=== PATIENT | female | born 1970 | race Caucasian/White ===

== ENCOUNTER 2017-10-23 17:21 | Emergency (ER) | payer OTHER ==
[~2017-10-23] VITALS: Ht 177.8 cm; Wt 92.4 kg
[2017-10-23 17:24] VITALS: TEMP 37.7; Ht 177.8 cm; Wt 92.4 kg
[2017-10-23] MEDS ORDERED: CYM/30 PO (17:36)
[2017-10-23] MEDS ORDERED: COEN100C11 PO (17:36)
[2017-10-23] MEDS ORDERED: PREG1CAP28 PO (17:36)
[2017-10-23] MEDS ORDERED: GLC/500 PO (17:36)
[2017-10-23] MEDS ORDERED: CHOL1000 PO (17:36)
[2017-10-23] MEDS ORDERED: LISI-788 PO (17:36)
[2017-10-23] MEDS ORDERED: FENOFIBRATE PO (17:36)
[2017-10-23] MEDS ORDERED: PREG1CAP70 PO (17:36)
[2017-10-23] MEDS ORDERED: CLOP1TAB15 PO (17:36)
[2017-10-23] MEDS ORDERED: PRAV40TA PO (17:36)
[2017-10-23] MEDS ORDERED: PANT40TA PO (17:36)
[2017-10-23] MEDS ORDERED: ASPI81TA28 PO (17:36)
[2017-10-23] MEDS ORDERED: METO25TA3 PO (17:36)
[2017-10-23] MEDS ORDERED: ANTICRE6 PO (17:39)
[2017-10-23] MEDS ORDERED: OXYC-609 PO (17:39)
[2017-10-23] MEDS ORDERED: ACETAMINOPHEN 500 MG TAB PO STA (17:58)
[2017-10-23] MEDS ORDERED: OXYCODONE HCL IR 5 MG TAB (IMMEDIATE RELEASE) PO STA (17:58)
--- NOTE | 2017-10-23 18:15 | EMERGENCY ROOM VISIT NOTE ---
History Report prepared by Karrie: Ester Hancock Under the Supervision of: Dr. Momo Ayala M.D. First contact with patient: 17:32 Chief Complaint: HAND PAIN/INJURY Stated Complaint: EXCESSIVE PAIN FROM SURGERY History of Present Illness The patient is a 47 year old female who presents to the Emergency Room with complaints of constant left hand pain beginning yesterday. The patient had carpal tunnel surgery on left hand yesterday. Her pain worsens with moving her fingers. She denies any fever, chills, nausea, or vomiting. She has follow up with her surgeon on Wednesday, six days from today. The patient is taking 5 mg of oxycodone every four hours which has not been helping her pain. She last took an oxycodone at 2 pm, about three and a half hours ago. She denies any other pain medication use. The patient called the HELP desk which referred her to come to the ED. She states she has been keeping her hand elevated at home. Source of History: patient Onset: yesterday Position: hand (left) Quality: other (pain) Timing: constant Associated Symptoms: No fevers, No chills, No nausea, No vomiting Review of Systems See HPI for pertinent positives and negatives. A total of ten systems were reviewed and were otherwise negative. Past Medical & Surgical Medical Problems: (1) Carpal tunnel syndrome on left Family History Patient reports no known family medical history. Social History Smoking Status: Current Every Day Smoker Housing Status: lives with family Current/Historical Medications Scheduled Aspirin (Aspirin Ec), 81 MG PO DAILY Cholecalciferol (Vitamin D3), 5,000 INTER.UNIT PO DAILY Clopidogrel (Plavix), 75 MG PO DAILY Coenzyme Q10 (Ubidecarenone) (Coq-10), 100 MG PO BID Duloxetine HCl (Cymbalta), 60 MG PO DAILY Lisinopril/Hctz (Zestoretic 20MG/25MG), 1 TAB PO BID Metformin Hcl (Glucophage), 500 MG PO BID Metoprolol Succ (Toprol Xl) (Toprol-Xl), 25 MG PO BID Pantoprazole (Protonix), 40 MG PO DAILY Pravastatin Sodium (Pravachol), 40 MG PO Q2D Pregabalin (Lyrica), 75 MG PO HS Pregabalin (Lyrica), 150 MG PO BID [Antibiotic], 1 CAP PO TID [Fenofibrate], 1 TAB PO DAILY Scheduled PRN Oxycodone HCl (Oxycodone HCl), 5 MG PO Q4 PRN for Pain Allergies Coded Allergies: Dicyclomine (Unverified Allergy, Unknown, GI UPSET, 10/23/17) Glipizide (Unverified Allergy, Unknown, GI UPSET, 10/23/17) Penicillins (Unverified Allergy, Unknown, RASH, 10/23/17) Prednisone (Unverified Allergy, Unknown, GI UPSET, 10/23/17) Statins (Unverified Allergy, Unknown, JOINTS ACHE, 10/23/17) Sulfa Antibiotics (Unverified Allergy, Unknown, UNKNOWN, 10/23/17) Trazodone (Unverified Allergy, Unknown, EXCESSIVE SLEEPING, 10/23/17) Physical Exam Vital Signs Date Time Temp Pulse Resp B/P (MAP) Pulse Ox O2 Delivery O2 Flow Rate FiO2 10/23/17 19:05 72 18 115/76 94 Room Air 10/23/17 17:24 37.7 86 18 130/88 94 Room Air Physical Exam GENERAL: Awake, alert, uncomfortable-appearing, in no distress HENT: Normocephalic, atraumatic. Oropharynx unremarkable. EYES: Normal conjunctiva. Sclera non-icteric. NECK: Supple. No nuchal rigidity. FROM. No JVD. RESPIRATORY: Clear to auscultation. CARDIAC: Regular rate, normal rhythm. Extremities warm and well perfused. Pulses equal. ABDOMEN: Soft, non-distended. No tenderness to palpation. No rebound or guarding. No masses. RECTAL: Deferred. MUSCULOSKELETAL: Chest examination reveals no tenderness. The back is symmetrical on inspection without obvious abnormality. There is no CVA tenderness to palpation. Mild edema left hand and distal forearm consistent with post-op, incision site clean, dry, and intact with no erythema, warmth or discharge, compartments are soft, minimal discomfort with passive stretch, distal PMS intact with brisk cap refill. LOWER EXTREMITIES: Calves are equal size bilaterally and non-tender. No edema. No discoloration. NEURO: Normal sensorium. No sensory or motor deficits noted. SKIN: No rash or jaundice noted. Medical Decision & Procedures Medications Administered Medications (Trade) Dose Ordered Sig/Tamar Route Start Time Stop Time Status Last Admin Dose Admin Oxycodone HCl (Roxicodone Immediate Rel Tab) 10 mg NOW STAT PO 10/23/17 17:58 10/23/17 18:00 DC 10/23/17 18:07 10 MG Acetaminophen (Tylenol Tab) 1,000 mg NOW STAT PO 10/23/17 17:58 10/23/17 18:00 DC 10/23/17 18:06 1,000 MG ED Course 174: The patient was evaluated in room B9. A complete history and physical exam was performed. 1931: I reevaluated the patient. Discussed results and discharge instructions: She verbalized understanding and agreement. The patient is ready for discharge. Medical Decision I reviewed the patient's past medical history, medications, and the nursing notes as described above. Differential diagnoses: post-op pain, post-op swelling, infection, cellulitis, compartment syndrome. The patient is a 39-year-old woman who presents emergency Department with left hand pain after having a carpal tunnel surgery yesterday per history of present illness. On arrival the patient is uncomfortable but in no acute distress. Dressing was taken down and incision site is clean dry and intact without any erythema or warmth or discharge. She has mild pain with range of motion able to fully extend her fingers. Compartments soft. Otherwise, distal PMS is intact with brisk cap refill. Patient was instructed on how to optimize elevation to decrease swelling. Also instructed that she may take an early dose of oxycodone if necessary in the first couple of days. We attempted to contact her hand surgeon occupational health nurse however were unsuccessful. Patient will call her surgeon first thing on Wednesday for reevaluation. Findings and plan for follow-up reviewed with patient. Patient agreeable and d/c'd per discharge instructions. Medication Reconcilliation Current Medication List: was personally reviewed by me Blood Pressure Screening Patient's blood pressure: Normal blood pressure Impression Primary Impression: Post-operative pain Scribe Attestation The scribe's documentation has been prepared under my direction and personally reviewed by me in its entirety. I confirm that the note above accurately reflects all work, treatment, procedures, and medical decision making performed by me. Departure Information Dispostion Home / Self-Care Referrals No Doctor, Assigned (PCP) Forms HOME CARE DOCUMENTATION FORM, IMPORTANT VISIT INFORMATION Patient Instructions Carpal Tunnel Release Surg, ED Post Op Pain, [facility] Additional Instructions Please follow up with your surgeon on Wednesday for re-evaluation. Your pain is likely related to your post operative swelling. Otherwise, your exam did not show signs of an emergent condition at this time. You taking her oxycodone however you may take 1-2 tablets every 4 hours as needed for pain. You should also take acetaminophen in addition to this for additional pain relief. You should also elevate your arm as instructed. Continue your current antibiotics. Return to the emergency department for worsening symptoms as described in the accompanying instructions.
[2017-10-23 19:05] VITALS: BP 115/76; PULSE 72; O2SAT 94
== END 2017-10-23 19:20 | disposition home or self-care (01) ==
LOC: C.EDB 17:22
DX: G89.18 Other acute postprocedural pain (principal); F17.200 Nicotine dependence, unspecified, uncomplicated; Z79.82 Long term (current) use of aspirin; Z79.84 Long term (current) use of oral hypoglycemic drugs; Z79.899 Other long term (current) drug therapy; Z80.0 Family history of malignant neoplasm of digestive organs; Z88.2 Allergy status to sulfonamides; Z88.8 Allergy status to other drugs, medicaments and biological substances

== ENCOUNTER 2021-02-03 23:08 | Inpatient (IN) ==
[2021-02-03] MEDS ORDERED: KETOROLAC TROMETHAMINE 15 MG/ML VIAL IV STA (23:41)
[2021-02-03] MEDS ORDERED: SODIUM CHLORIDE 0.9% 1000ML 1,000 ML IV ONE (23:41)
[2021-02-03] MEDS ORDERED: PROMETHAZINE 12.5 MG/50.5 ML BAG IV STA (23:42)
[2021-02-03] MEDS ORDERED: diphenhydrAMINE 50 MG/ML VIAL IV STA (23:42)
[2021-02-04 00:23] LABS: Basophils # (auto) 0.06 K/uL (0-0.2); Basophils % (auto) 0.6 %; Eosinophils # (auto) 0.14 K/uL (0-0.5); Eosinophils % (auto) 1.5 %; Hematocrit (blood only) 37.6 % (37-47); Hemoglobin 12.7 g/dL (12.0-16.0); Immature Granulocytes # (auto) 0.02 K/uL (0.00-0.02); Immature Granulocytes % (auto) 0.2 %; Lymphocytes # (auto) 2.61 K/uL (1.2-3.4); Mean Corpuscular Hemoglobin 29.9 pg (25-34); Mean Corpuscular Hgb Conc 33.8 g/dL (32-36); Mean Corpuscular Volume 88.5 fL (80-100); Mean Platelet Volume 9.4 fL (7.4-10.4); Monocytes # (auto) 0.72 K/uL (0.11-0.59); Monocytes % (auto) 7.7 %; Neutrophils # (auto) 5.77 K/uL (1.4-6.5); Platelet Count 316 K/uL (130-400); RDW Coefficient of Variation 13.2 % (11.5-14.5); RDW Standard Deviation 42.9 fL (36.4-46.3); Red Blood Count 4.25 M/uL (4.2-5.4); White Blood Count 9.32 K/uL (4.8-10.8)
[2021-02-04 00:31] LABS: Appearance Urine Clear (Clear); Bacteria Urine Automated Negative (Negative); Bilirubin Urine Negative (Negative); Blood Urine Negative (Negative); Cast Urine Automated 0 /lpf (0-5); Color Urine Yellow; Epithelial Cell Urine Auto 0-5 /lpf (0-5); Glucose Urine UA Negative (Negative); Ketones Urine Negative (Negative); Leukocyte Esterase Urine Trace (Negative); Nitrite Urine Negative (Negative); Protein Urine Negative (Negative); RBC Urine Automated 0-4 /hpf (0-4); Specific Gravity Urine 1.009 (1.000-1.030); Urobilinogen Urine Negative (Negative); pH Urine 7.5 (4.5-7.5)
[2021-02-04 00:49] LABS: Alanine Aminotransferase 49 U/L (12-78); Albumin Globulin Ratio 1.1 (0.9-2); Albumin Level 4.1 gm/dl (3.4-5.0); Alkaline Phosphatase 57 U/L (45-117); BUN Creatinine Ratio 15.1 (10-20); Bilirubin,Total 0.4 mg/dl (0.2-1); Blood Urea Nitrogen 14 mg/dl (7-18); Calcium 10.3 mg/dl (8.5-10.1); Carbon Dioxide 26 mmol/L (21-32); Chloride 106 mmol/L (98-107); Creatinine Clr Calc Pharmacy 80.1 ml/min; Est GFR (African American) 82.5; Est GFR (Non-African American) 71.2; Globulin 3.6 gm/dl (2.5-4.0); Glucose 168 mg/dl (70-99); Sodium 138 mmol/L (136-145); Total Protein 7.7 gm/dl (6.4-8.2); Troponin I < 0.015 ng/ml (0-0.045)
[2021-02-04] MEDS ORDERED: LORazepam 1 MG/2 ML VIAL IV STA (01:09)
[2021-02-04] MEDS ORDERED: ACETAMINOPHEN 1,000 MG/100 ML VIAL IV STA (01:09)
[2021-02-04] MEDS ORDERED: MAGNESIUM SULFATE / D5W 1 GM/100 ML BAG IV STA (01:11)
[2021-02-04] MEDS ORDERED: LABETALOL HCL IV 5 MG/ML 20ML IV STA (02:11)
[2021-02-04 04:52] LABS: Influenza A virus by PCR Negative (Neg); Influenza B virus by PCR Negative (Neg); RSV by PCR Negative (Neg); SARS CoV2 RNA(COVID-19) InHosp NEGATIVE (Negative)
--- NOTE | 2021-02-04 05:05 | History and Physical Report ---
DATE OF ADMISSION: 02/04/2021 CHIEF COMPLAINT: Severe headache and elevated blood pressure. HISTORY OF PRESENT ILLNESS: This is a 50-year-old female with past medical history significant for type 2 diabetes, diabetic retinopathy, hyperlipidemia, CAD, hypertension, GERD, vitamin D deficiency, vitamin B12 deficiency, restless legs syndrome, recurrent epigastric abdominal pain, adjustment depression, history of tobacco abuse, who presents with severe headaches. The patient states since September, she is having on and off headaches. Since the last several days, the pain has become constant and severe. She is also following with PCP,headaches thought to be due to elevated blood pressure and her Lopressor dose was increased to 75 b.i.d., but headaches is not getting better, and came to the ER. In the ER, blood pressure was high when she came in, blood pressure was 226/124 and the patient was given labetalol, Ativan, Benadryl, Toradol, promethazine. Still her blood pressure is running high and still complains of headache and somewhat drowsy from the Ativan. Denies any other complaints. One time she had vision problem , but recently she saw ophthalmology and has new eye glasses. Denies any earache, no runny nose, no sore throat, no loss of sense of smell or taste. No cough, no difficulty swallowing. Appetite is okay. No chest pain, no shortness of breath. Nausea, but no vomiting. No abdominal pain. Normal bowel and bladder movements. Ambulating okay. Lives alone. No swelling in the legs. ALLERGIES: DICYCLOMINE, GLIPIZIDE, PENICILLIN, PREDNISONE, STATINS, SULFA, TRAZODONE. PAST MEDICAL HISTORY: As mentioned above. PAST SURGICAL HISTORY: Left carpal tunnel surgery, cardiac catheterization, EGD, laparoscopic biopsy, ligation of oviduct, cholecystectomy, tonsillectomy, adenoidectomy, vaginal hysterectomy. MEDICATIONS: Currently, the patient is on aspirin 81 mg p.o. daily, vitamin D 125 mcg p.o. daily, Plavix 75 mg p.o. daily, vitamin B12 1000 mcg p.o. daily, duloxetine 60 mg p.o. daily, lisinopril 40 mg p.o. daily, metformin 1000 mg p.o. b.i.d., metoprolol tartrate 75 mg p.o. b.i.d., omega fish oil 1 capsule p.o. b.i.d., Zofran 4 mg p.o. q. 6 hours p.r.n., Protonix 40 mg p.o. daily, pravastatin 40 mg p.o. p.m., pregabalin 225 mg p.o. b.i.d., prochlorperazine 2.5 mg p.o. q. 6 hours p.r.n., semaglutide 0.5 mg subcutaneous weekly. FAMILY HISTORY: Significant for father had COPD, heart attack, lung cancer; mother has hypertension, hyperlipidemia, diabetes; paternal aunt has breast cancer; maternal grandmother has diabetes. SOCIAL HISTORY: Currently lives alone. Smoked for 20 years. Now she smokes only occasionally. No alcohol use, no drug use. REVIEW OF SYSTEMS: As per HPI. Rest of the review of systems negative. PHYSICAL EXAMINATION: GENERAL: The patient is obese, not in acute distress. VITAL SIGNS: Temperature 36.4, pulse 75, respiratory rate 22, blood pressure currently 189/110, oxygen 93% on room air. HEENT: Pupils equal, round, reactive to light. Oral mucosa dry. NECK: No JVD, no neck masses. CARDIOVASCULAR: S1, S2 heard, regular rate and rhythm, no murmur, no gallop. RESPIRATORY SYSTEM: Normal AP diameter. No accessory muscle use. No wheezing, no crackles. ABDOMEN: Soft, bowel sounds present, nontender. No distention. CENTRAL NERVOUS SYSTEM: Cranial nerves II-XII grossly intact. Nonfocal. EXTREMITIES: No edema, no erythema. LABORATORY DATA: WBC 9.3, hemoglobin 12.7, hematocrit 37.6, platelets 316. Sodium 138, chloride 106, bicarbonate 26, BUN 14, creatinine 0.9, serum glucose 168, calcium 10.3, total bilirubin 0.4, ALT 49, alkaline phosphatase 57. Troponin I less than 0.015. Urinalysis, trace leukocyte esterase, otherwise negative. SARS-CoV-2 pending. IMAGING DATA: CT of the head, preliminary report, periventricular small vessel ischemic changes, mild generalized brain atrophy, otherwise no acute findings. ASSESSMENT AND PLAN: This 50-year-old female presents with severe headaches and hypertensive urgency. 1. Severe headaches: Going on since September, on and off. Thought to be from elevated blood pressure. The Lopressor dose was increased, but still having severe headaches. CT of the head is unremarkable. We will get a brain MRI scan. Control blood pressure. Also consult neurology as this is going for some time. Pain control with Dilaudid p.r.n., Tylenol p.r.n. Monitor in the hospital. 2. Hypertensive urgency: Recently Lopressor dose was increased to 75 b.i.d., but still elevated. Will continue with the home lisinopril and Lopressor. Placed her on IV labetalol p.r.n., monitor in the tele floor. Consult cardiology for further recommendations and will follow the echocardiogram. 3. History of coronary artery disease: On aspirin, Plavix, statin, and beta meño, currently asymptomatic. 4. History of diabetes: Hold her metformin and semaglutide. Placed on Lantus and sliding scale. Follow the blood sugars, diabetic diet. Follow hemoglobin A1c levels. 5. History of depression: Continue duloxetine. 6. Gastroesophageal reflux disease: Continue Protonix. 7. Hyperlipidemia: Continue statin. 8. Vitamin B12 and D deficiencies: Continue home supplements. 9. Deep venous thrombosis prophylaxis: Sequential compression devices for now. DISPOSITION: Closely monitor in the tele floor. Level 1 full code. Expect to discharge home and follow with family doctor. VERENICE
[2021-02-04] MEDS ORDERED: SODIUM CHLORIDE 0.9% 1000ML 1,000 ML IV SCH (06:01)
[2021-02-04] MEDS ORDERED: PROCHLORPERAZINE MALEATE 5 MG TAB PO PRN (06:01)
[2021-02-04] MEDS ORDERED: POLYETHYLENE (MIRALAX) 17 GM PACK PO PRN (06:01)
[2021-02-04] MEDS ORDERED: NITROGLYCERIN SL 0.4 MG/TAB TAB SL PRN (06:01)
[2021-02-04] MEDS ORDERED: ACETAMINOPHEN 325 MG TAB PO PRN (06:01)
[2021-02-04] MEDS ORDERED: ONDANSETRON INJ 2 MG/ML 2 ML VIAL IV PRN (06:01)
[2021-02-04] MEDS ORDERED: CARBOHYDRATES FOR HYPOGLYCEMIA PO PRN (06:15)
[2021-02-04] MEDS ORDERED: GLUCAGON FOR INJ 1 MG VIAL IM PRN (06:15)
[2021-02-04] MEDS ORDERED: DEXTROSE 50% 50 ML SYRINGE IV PRN (06:15)
[2021-02-04] MEDS ORDERED: GLUCOSE 40% GEL 15 GM TUBE PO PRN (06:15)
[2021-02-04] MEDS ORDERED: GLUCOSE 10 TABS/TUBE PO PRN (06:15)
[2021-02-04] MEDS: LABETALOL HCL IV 5 MG/ML 20ML IV PRN ×2 (06:19→23:21)
[2021-02-04] MEDS ORDERED: hydrALAZINE HCL 20 MG/ML VIAL IV STA (06:44)
--- NOTE | 2021-02-04 07:27 | CT Scan Report ---
CT SCAN OF THE BRAIN WITHOUT IV CONTRAST CLINICAL HISTORY: Headache. Hypertension. COMPARISON STUDY: No priors. TECHNIQUE: Unenhanced axial CT scan of the brain is performed from the vertex to the skull base. A d ose lowering technique was utilized adhering to the principles of ALARA. CT DOSE: 614.27 mGy.cm FINDINGS: Brain parenchyma: The brain parenchyma is normal in appearance. There is no hemorrhage, mass effect, or evidence of acute territorial ischemia by CT criteria. Nicole-white matter differentiation is preser antonio. No extra-axial fluid collection is seen. Ventricles, sulci, cisterns: Normal in configuration. Intracranial vasculature: There is atherosclerotic calcification of the vertebral arteries. Calvarium: Unremarkable. Sinuses and mastoids: The visualized paranasal sinuses are clear. The mastoid air cells are well pneu matized. Orbits: The bony orbits are grossly intact. IMPRESSION: There is no hemorrhage, mass effect, or evidence of acute territorial ischemia by CT critimmy whelan. ACT 112: Negative or not required by law. Electronically signed by: Mika Hayes M.D. 02/04/2021 7:25 AM
[2021-02-04] MEDS: INSULIN ASPART 100 UNITS/ML 3 ML PEN SC SCH ×4 (07:44→22:33)
--- NOTE | 2021-02-04 07:48 | Emergency Department Note ---
History of Present Illness General Chief complaint: Headache Stated complaint: BAD HEADACHE Time Seen by Provider: 02/03/21 23:20 Source: patient Mode of arrival: ambulatory Limitations: no limitations History of Present Illness Maximum Pain Intensity: 10 This is a 50-year-old female who presents to the emergency department for evaluation of headache and high blood pressure. Patient states that she has had a headache on and off since September 2020. She states that she has headaches almost daily. She reports that it has been worse over the past 4 days. Nothing has made it better, including Tylenol, cold washcloth and ice. She has had dry heaves. She took her nausea medication without improvement. Patient states she has had other issues such as abdominal pain and diarrhea over the past several months. She has also been having issues with her blood pressure. She states that her blood pressure has been poorly controlled on metoprolol and lisinopril. Her PCP believes that her headaches are due to her blood pressure. She states that no one has done any imaging of her head. She rates her pain a 10/10. She denies any numbness/weakness, vision problems or slurred speech. Home Medications Medication Instructions Recorded Confirmed Type aspirin [Aspirin Low Dose] 81 mg PO DAILY 02/04/21 02/04/21 History cholecalciferol (vitamin D3) 125 mcg PO DAILY 02/04/21 02/04/21 History clopidogrel 75 mg PO DAILY 02/04/21 02/04/21 History cyanocobalamin (vitamin B-12) 1,000 mcg PO DAILY 02/04/21 02/04/21 History [Vitamin B-12] duloxetine 60 mg PO DAILY 02/04/21 02/04/21 History lisinopril 40 mg PO DAILY 02/04/21 02/04/21 History metformin 1,000 mg PO BID 02/04/21 02/04/21 History metoprolol tartrate 75 mg PO BID 02/04/21 02/04/21 History omega [id number] oil [Fish Oil] 1 cap PO BID 02/04/21 02/04/21 History ondansetron HCl 4 mg PO Q6 PRN 02/04/21 02/04/21 History pantoprazole 40 mg PO DAILY 02/04/21 02/04/21 History pravastatin 40 mg PO QPM 02/04/21 02/04/21 History pregabalin 225 mg PO BID 02/04/21 02/04/21 History prochlorperazine maleate 2.5 mg PO Q6 PRN 02/04/21 02/04/21 History semaglutide [Ozempic] 0.5 mg SUBCUT WK 02/04/21 02/04/21 History Allergies Allergy/AdvReac Type Severity Reaction Status Date / Time dicyclomine Allergy Unknown GI UPSET Unverified 02/04/21 00:14 glipizide Allergy Unknown GI UPSET Unverified 02/04/21 00:14 Penicillins Allergy Unknown RASH Unverified 02/04/21 00:14 prednisone Allergy Unknown GI UPSET Unverified 02/04/21 00:14 [id number] Reductase Allergy Unknown JOINTS ACHE Unverified 02/04/21 00:14 Inhibitor Sulfa (Sulfonamide Allergy Unknown UNKNOWN Unverified 02/04/21 00:14 Antibiotics) trazodone Allergy Unknown EXCESSIVE Unverified 02/04/21 00:14 SLEEPING Past Med/Surg History Social History Smoking Status: Current some day smoker Second Hand Exposure: Yes; Do You Dip or Chew Tobacco: No; Tobacco Cessation Education Requested by Patient: No Hx Alcohol Use: No Hx Substance Use: No Preferred Language: Palauan Communication Ability: Effective Assembly Technician Required: No Beliefs That Will Affect Care: None Current Living Situation: Alone Other Information That Helps Us Care for You: No Feels Safe at Home: Yes Safety Concerns: Feels Safe At This Time Assistive Devices: None Review of Systems A total of 10 systems reviewed and were otherwise negative Physical Exam Vital Signs Vital Signs - 24 hr 02/03/21 23:13 02/04/21 00:17 02/04/21 01:00 Temperature 36.4 C L Temperature Source Temporal Artery Scan Pulse Rate 72 76 77 Pulse Rate from SpO2 Sensor 77 77 Pulse Rhythm Regular Pulse Strength Normal Respiratory Rate 20 22 24 Respiratory Effort / Characteristics Non-Labored Spontaneous Respiratory Depth Normal Respiratory Pattern Regular Blood Pressure 226/124 H 214/117 H 226/114 H Blood Pressure Mean 158 149 151 Blood Pressure Position Sitting Pulse Oximetry 97 96 93 Oxygen Delivery Method Room Air Room Air Sepsis Recent Fever Within 48 Hours No Sepsis New/Unexplained Change in Mental Status N/A Sepsis Action Taken by Nursing No Action Required 02/04/21 01:30 02/04/21 02:00 02/04/21 02:27 Temperature Temperature Source Pulse Rate 78 75 Pulse Rate from SpO2 Sensor 73 73 Pulse Rhythm Pulse Strength Respiratory Rate 20 18 Respiratory Effort / Characteristics Respiratory Depth Respiratory Pattern Blood Pressure 226/113 H 223/123 H 198/102 H Blood Pressure Mean 150 156 134 Blood Pressure Position Pulse Oximetry 94 94 Oxygen Delivery Method Sepsis Recent Fever Within 48 Hours Sepsis New/Unexplained Change in Mental Status Sepsis Action Taken by Nursing 02/04/21 02:30 02/04/21 02:44 02/04/21 03:00 Temperature Temperature Source Pulse Rate 88 75 75 Pulse Rate from SpO2 Sensor 89 75 Pulse Rhythm Pulse Strength Respiratory Rate 19 22 22 Respiratory Effort / Characteristics Respiratory Depth Respiratory Pattern Blood Pressure 190/107 H 189/110 H 161/102 H Blood Pressure Mean 134 136 121 Blood Pressure Position Pulse Oximetry 93 93 95 Oxygen Delivery Method Sepsis Recent Fever Within 48 Hours Sepsis New/Unexplained Change in Mental Status Sepsis Action Taken by Nursing 02/04/21 03:30 02/04/21 04:00 Temperature Temperature Source Pulse Rate 74 73 Pulse Rate from SpO2 Sensor Pulse Rhythm Pulse Strength Respiratory Rate 21 21 Respiratory Effort / Characteristics Respiratory Depth Respiratory Pattern Blood Pressure 173/118 H 178/114 H Blood Pressure Mean 136 135 Blood Pressure Position Pulse Oximetry 96 96 Oxygen Delivery Method Sepsis Recent Fever Within 48 Hours Sepsis New/Unexplained Change in Mental Status Sepsis Action Taken by Nursing VITALS: Vitals are noted on the nurse's note and reviewed by myself. Vital signs stable. GENERAL: This is a 50-year-old female, in no acute distress, well-developed well-nourished. SKIN: The skin was without rashes. HEAD: Normocephalic atraumatic. EARS: External auditory canals clear, tympanic membranes pearly nicole without erythema or effusion bilaterally. EYES: Pupils equal round and reactive to light and accommodation. Extraocular movements intact. MOUTH: Mucous membranes moist. Tonsils are not enlarged. Pharynx without erythema or exudate. NECK: Supple without nuchal rigidity. No lymphadenopathy. No meningismus. HEART: Regular rate and rhythm without murmurs gallops or rubs. LUNGS: Clear to auscultation bilaterally without wheezes, rales or rhonchi. ABDOMEN: Positive bowel sounds x 4. Soft, nontender to palpation. MUSCULOSKELETAL: Full range of motion throughout. Strength 5/5 throughout. NEURO: Patient was alert and oriented to person place and time. No focal neurological deficits. Course Consultations Consultation #1: Dr. Arenas [facility] hospitalist Administered Medications Amlodipine Besylate (Amlodipine Besylate 5 Mg Tab) 5 mg PO BID CHARLES Stop: 03/06/21 20:59 Last Admin: 02/05/21 20:42 Dose: 5 mg Documented by: [id number] Admin: 02/05/21 08:14 Dose: 5 mg Documented by: [id number] Admin: 02/04/21 21:20 Dose: 5 mg Documented by: [id number] Aspirin (Aspirin 81 Mg Ectab) 81 mg PO DAILY CHARLES Stop: 03/06/21 08:59 Last Admin: 02/05/21 08:14 Dose: 81 mg Documented by: [id number] Admin: 02/04/21 08:15 Dose: 81 mg Documented by: [id number] Clonidine HCl (Clonidine Hcl 0.1 Mg Tab) 0.1 mg PO BID CHARLES Stop: 03/07/21 10:59 Last Admin: 02/05/21 20:42 Dose: 0.1 mg Documented by: [id number] Admin: 02/05/21 11:43 Dose: 0.1 mg Documented by: [id number] Clopidogrel Bisulfate (Clopidogrel Bisulfate 75 Mg Tab) 75 mg PO DAILY CHARLES Stop: 03/06/21 08:59 Last Admin: 02/05/21 08:15 Dose: 75 mg Documented by: [id number] Admin: 02/04/21 08:15 Dose: 75 mg Documented by: [id number] Cyanocobalamin (Cyanocobalamin 500 Mcg Tablet (Vitamin B-12)) 1,000 mcg PO DAILY CHARLES Stop: 03/06/21 08:59 Last Admin: 02/05/21 08:15 Dose: 1,000 mcg Documented by: [id number] Admin: 02/04/21 08:15 Dose: 1,000 mcg Documented by: [id number] Duloxetine HCl (Duloxetine Hcl 60 Mg Cap) 60 mg PO DAILY CHARLES Stop: 03/06/21 08:59 Last Admin: 02/05/21 08:14 Dose: 60 mg Documented by: [id number] Admin: 02/04/21 08:16 Dose: 60 mg Documented by: [id number] Ezetimibe (Ezetimibe 10 Mg Tablet) 10 mg PO QAM CHARLES Stop: 03/07/21 18:59 Last Admin: 02/05/21 20:09 Dose: 10 mg Documented by: [id number] Hydromorphone HCl (Hydromorphone Inj 0.5 Mg/0.5 Ml Syr) 0.5 mg IV Q3H PRN PRN Reason: Pain Stop: 02/18/21 06:00 Last Admin: 02/05/21 20:51 Dose: 0.5 mg Documented by: [id number] Admin: 02/05/21 17:03 Dose: 0.5 mg Documented by: [id number] Admin: 02/04/21 23:03 Dose: 0.5 mg Documented by: [id number] Insulin Aspart (Insulin Aspart 100 Units/Ml 3 Ml Pen) 0 units SC ACHS [facility] Stop: 03/06/21 07:29 Last Admin: 02/05/21 20:36 Dose: 1 units Documented by: [id number] Cosigned by: [id number] Admin: 02/05/21 17:08 Dose: 4 units Documented by: [id number] Cosigned by: [id number] Admin: 02/05/21 12:26 Dose: Not Given Documented by: [id number] Admin: 02/05/21 08:15 Dose: 3 units Documented by: [id number] Cosigned by: [id number] Admin: 02/04/21 22:33 Dose: 1 units Documented by: [id number] Cosigned by: [id number] Admin: 02/04/21 18:09 Dose: 3 units Documented by: [id number] Cosigned by: [id number] Admin: 02/04/21 11:52 Dose: 4 units Documented by: [id number] Cosigned by: [id number] Admin: 02/04/21 07:44 Dose: 4 units Documented by: [id number] Cosigned by: [id number] Insulin Glargine (Insulin Glargine Solostar 100 Units/Ml 3 Ml Pen) 6 units SC DAILY CHARLES Stop: 03/06/21 08:59 Last Admin: 02/05/21 08:15 Dose: 6 units Documented by: [id number] Cosigned by: [id number] Admin: 02/04/21 08:14 Dose: 6 units Documented by: [id number] Cosigned by: [id number] Ketorolac Tromethamine (Ketorolac 30 Mg/Ml Vial) 30 mg IV Q8H PRN PRN Reason: Headache Stop: 02/07/21 15:50 Last Admin: 02/05/21 15:53 Dose: 30 mg Documented by: [id number] Admin: 02/05/21 08:20 Dose: 30 mg Documented by: [id number] Admin: 02/04/21 16:19 Dose: 30 mg Documented by: [id number] Labetalol HCl (Labetalol Hcl Iv 5 Mg/Ml 20ml) 10 mg IV Q4H PRN PRN Reason: Hypertension Stop: 03/06/21 06:00 Last Admin: 02/04/21 23:21 Dose: 10 mg Documented by: [id number] Cosigned by: [id number] Admin: 02/04/21 06:19 Dose: 10 mg Documented by: [id number] Cosigned by: [id number] Lisinopril (Lisinopril 40 Mg Tab) 40 mg PO DAILY CHARLES Stop: 03/06/21 08:59 Last Admin: 02/05/21 08:15 Dose: 40 mg Documented by: [id number] Admin: 02/04/21 08:16 Dose: 40 mg Documented by: [id number] Lorazepam (Lorazepam 0.5 Mg Tab) 0.5 mg PO ONCE PRN PRN Reason: MRI Stop: 03/06/21 09:49 Last Admin: 02/04/21 21:23 Dose: 0.5 mg Documented by: [id number] Admin: 02/04/21 10:08 Dose: 0.5 mg Documented by: [id number] Metoprolol Tartrate (Metoprolol Tartrate 100 Mg Tab) 100 mg PO BID CHARLES Stop: 03/06/21 20:59 Last Admin: 02/05/21 20:42 Dose: 100 mg Documented by: [id number] Admin: 02/05/21 08:14 Dose: 100 mg Documented by: [id number] Admin: 02/04/21 21:20 Dose: 100 mg Documented by: [id number] Pantoprazole Sodium (Pantoprazole 40 Mg Tab) 40 mg PO DAILY CHARLES Stop: 03/06/21 08:59 Last Admin: 02/05/21 08:15 Dose: 40 mg Documented by: [id number] Admin: 02/04/21 08:15 Dose: 40 mg Documented by: [id number] Pravastatin Sodium (Pravastatin Sod 40 Mg Tab) 40 mg PO QPM CHARLES Stop: 03/06/21 20:59 Last Admin: 02/05/21 20:42 Dose: 40 mg Documented by: [id number] Admin: 02/04/21 21:19 Dose: 40 mg Documented by: [id number] Pregabalin (Pregabalin 75 Mg Cap) 225 mg PO BID CHARLES Stop: 03/06/21 08:59 Last Admin: 02/05/21 20:41 Dose: 225 mg Documented by: [id number] Admin: 02/05/21 08:20 Dose: 225 mg Documented by: [id number] Admin: 02/04/21 21:58 Dose: 225 mg Documented by: [id number] Admin: 02/04/21 08:19 Dose: 225 mg Documented by: [id number] Topiramate (Topiramate 25 Mg Tab) 25 mg PO BID CHARLES Stop: 03/07/21 20:59 Last Admin: 02/05/21 20:42 Dose: 25 mg Documented by: [id number] Vitamin D (Cholecalciferol 1,000 Units 25 Mcg Tab) 5,000 units PO DAILY CHARLES Stop: 03/06/21 08:59 Last Admin: 02/05/21 08:14 Dose: 5,000 units Documented by: [id number] Admin: 02/04/21 08:15 Dose: 5,000 units Documented by: [id number] Discontinued Medications Amlodipine Besylate (Amlodipine Besylate 5 Mg Tab) 5 mg PO NOW ONE Stop: 02/04/21 11:17 Last Admin: 02/04/21 11:32 Dose: 5 mg Documented by: [id number] Diphenhydramine HCl (Diphenhydramine 50 Mg/Ml Vial) 25 mg IV NOW STA Stop: 02/03/21 23:43 Last Admin: 02/04/21 00:15 Dose: 25 mg Documented by: [id number] Gadobutrol (Gadobutrol 65ml Vial) 8 ml IV ONCE ONE Stop: 02/04/21 13:20 Last Admin: 02/04/21 13:20 Dose: 8 ml Documented by: [id number] Hydralazine HCl (Hydralazine Hcl 20 Mg/Ml Vial) 10 mg IV NOW STA Stop: 02/04/21 06:45 Last Admin: 02/04/21 07:35 Dose: 10 mg Documented by: [id number] Sodium Chloride (Nss 1000ml) 1,000 mls @ 999 mls/hr IV .Q1H1M ONE Stop: 02/04/21 00:41 Last Infusion: 02/04/21 01:16 Dose: 0 mls/hr Documented by: [id number] Admin: 02/04/21 00:15 Dose: 999 mls/hr Documented by: [id number] Promethazine HCl (Phenergan) 12.5 mg in 50.5 mls @ 202 mls/hr IV NOW STA Stop: 02/03/21 23:56 Last Infusion: 02/04/21 00:34 Dose: 0 mls/hr Documented by: [id number] Admin: 02/04/21 00:15 Dose: 202 mls/hr Documented by: [id number] Lorazepam (Ativan) 1 mg in 2 mls @ 2 mls/min IV NOW STA Stop: 02/04/21 01:10 Last Admin: 02/04/21 01:19 Dose: 2 mls/min Documented by: [id number] Magnesium Sulfate/Dextrose (Magnesium Sulfate / D5w) 1 gm in 100 mls @ 100 mls/hr IV NOW STA Stop: 02/04/21 02:10 Last Infusion: 02/04/21 02:18 Dose: 0 mls/hr Documented by: [id number] Admin: 02/04/21 01:18 Dose: 100 mls/hr Documented by: [id number] Acetaminophen (Ofirmev) 1,000 mg in 100 mls @ 400 mls/hr IV NOW STA Stop: 02/04/21 01:23 Last Infusion: 02/04/21 01:34 Dose: 0 mls/hr Documented by: [id number] Admin: 02/04/21 01:19 Dose: 400 mls/hr Documented by: [id number] Sodium Chloride (Nss 1000ml) 1,000 mls @ 75 mls/hr IV .[id number] CHARLES Stop: 02/04/21 19:20 Last Infusion: 02/04/21 09:40 Dose: 0 mls/hr Documented by: [id number] Admin: 02/04/21 06:15 Dose: 75 mls/hr Documented by: [id number] Ketorolac Tromethamine (Ketorolac Tromethamine 15 Mg/Ml Vial) 15 mg IV NOW STA Stop: 02/03/21 23:42 Last Admin: 02/04/21 00:15 Dose: 15 mg Documented by: [id number] Labetalol HCl (Labetalol Hcl Iv 5 Mg/Ml 20ml) 10 mg IV NOW STA Stop: 02/04/21 02:12 Last Admin: 02/04/21 02:31 Dose: 10 mg Documented by: [id number] Cosigned by: [id number] Metoprolol Tartrate (Metoprolol Tartrate 25 Mg Tab) 75 mg PO BID CHARLES Stop: 03/06/21 08:59 Last Admin: 02/04/21 08:15 Dose: 75 mg Documented by: [id number] Medical Decision Making Differential Diagnosis The differential diagnosis includes acute intracranial bleed, meningitis, encephalitis, mass or mass effect, sinusitis, infection, tumor, headache, temporal arteritis and carbon monoxide exposure, and migraine. Home Medications Current Medication List: was personally reviewed by me Laboratory Data Attestation: I reviewed the patient's lab results. Result diagrams: 02/05/21 06:14 02/05/21 06:14 Lab Results 02/03/21 02/03/21 02/03/21 Range/Units 23:30 23:30 23:30 WBC Cancelled RBC Cancelled Hgb Cancelled Hct Cancelled MCV Cancelled MCH Cancelled MCHC Cancelled RDW Std Deviation Cancelled RDW Coeff of Nicolas Cancelled Plt Count Cancelled MPV Cancelled Immature Gran % (Auto) Cancelled Neut % (Auto) Cancelled Lymph % (Auto) Cancelled [place] % (Auto) Cancelled Eos % (Auto) Cancelled Baso % (Auto) Cancelled Neut # (Auto) Cancelled Lymph # (Auto) Cancelled [place] # (Auto) Cancelled Eos # (Auto) Cancelled Baso # (Auto) Cancelled Immature Gran # (Auto) Cancelled Absolute Nucleated RBC Cancelled Nucleated RBC % (auto) Cancelled Neutrophils % (Manual) Cancelled Band Neutrophils % Cancelled Lymphocytes % (Manual) Cancelled Prolymphocyte % Cancelled Reactive Lymphs % (Man) Cancelled Monocytes % (Manual) Cancelled Eosinophils % (Manual) Cancelled Basophils % (Manual) Cancelled Metamyelocytes % (Man) Cancelled Myelocytes % (Man) Cancelled Promyelocytes % (Man) Cancelled Blast Cells % (Manual) Cancelled Plasma Cell % (Manual) Cancelled Other Cells % Cancelled Nucleated RBC % Cancelled Neutrophils # (Manual) Cancelled Band Neutrophils # Cancelled Total Absolute Neuts Cancelled Lymphocytes # (Manual) Cancelled Prolymphocyte # Cancelled Reactive Lymphs # Cancelled Total Abs Lymphocytes Cancelled Monocytes # (Manual) Cancelled Eosinophils # (Manual) Cancelled Basophils # (Manual) Cancelled Metamyelocytes # (Man) Cancelled Myelocytes # (Manual) Cancelled Promyelocytes # (Man) Cancelled Blast Cells # (Man) Cancelled Plasma Cell # (Manual) Cancelled Other Cells # Cancelled Nucleated RBCs # (Man) Cancelled Hypersegmented Neuts Cancelled Hyposegmented Neuts Cancelled Hypogranular Neuts Cancelled Large Granular Lymphs Cancelled # Lrg Granular Lymphs Cancelled Hairy Cells Cancelled Smudge Cells Cancelled Toxic Granulation Cancelled Toxic Vacuolation Cancelled Dohle Bodies Cancelled Nancy Rods Cancelled Platelet Estimate Cancelled Hypogranular Platelets Cancelled Clumped Platelets Cancelled Giant Platelets Cancelled Platelet Satelliting Cancelled RBC Morphology Cancelled Polychromasia Cancelled Hypochromasia Cancelled Poikilocytosis Cancelled Basophilic Stippling Cancelled Anisocytosis Cancelled Microcytosis Cancelled Macrocytosis Cancelled Spherocytes Cancelled Pappenheimer Bodies Cancelled Sickle Cells Cancelled Target Cells Cancelled Tear Drop Cells Cancelled Ovalocytes Cancelled Stomatocytes Cancelled [place] Bodies Cancelled Echinocytes Cancelled Acanthocytes (Spur) Cancelled Rouleaux Cancelled RBC Agglutinates Cancelled Schistocytes Cancelled RBC Morph Comment Cancelled Sezary Cell Cancelled Sodium Cancelled Potassium Cancelled Chloride Cancelled Carbon Dioxide Cancelled Anion Gap Cancelled BUN Cancelled Creatinine Cancelled Est Cr Clr Drug Dosing Cancelled Est GFR ( Amer) Cancelled Est GFR (Non-Af Amer) Cancelled BUN/Creatinine Ratio Cancelled Glucose Cancelled Calcium Cancelled Total Bilirubin Cancelled AST Cancelled ALT Cancelled Alkaline Phosphatase Cancelled Troponin I Cancelled Total Protein Cancelled Albumin Cancelled Globulin Cancelled Albumin/Globulin Ratio Cancelled Urine Color Yellow Urine Appearance Clear (Clear) Urine pH 7.5 (4.5-7.5) Ur Specific [place] 1.009 (1.000-1.030) Urine Protein Negative (Negative) Urine Glucose (UA) Negative (Negative) Urine Ketones Negative (Negative) Urine Blood Negative (Negative) Urine Nitrite Negative (Negative) Urine Bilirubin Negative (Negative) Urine Urobilinogen Negative (Negative) Ur Leukocyte Esterase Trace H (Negative) Urine WBC (Auto) 1-5 (0-5) /hpf Urine RBC (Auto) 0-4 (0-4) /hpf U Hyaline Cast (Auto) 0 (0-5) /lpf U Epithel Cells (Auto) 0-5 (0-5) /lpf Urine Bacteria (Auto) Negative (Negative) COVID-19 Eval Order SARS-CoV-2 (PCR) (Negative) Influenza Type A (PCR) (Neg) Influenza Type B (PCR) (Neg) RSV (RT-PCR) (Neg) 02/04/21 02/04/21 02/04/21 Range/Units 00:13 00:13 03:30 WBC 9.32 RBC 4.25 Hgb 12.7 Hct 37.6 MCV 88.5 MCH 29.9 MCHC 33.8 RDW Std Deviation 42.9 RDW Coeff of Nicolas 13.2 Plt Count 316 MPV 9.4 Immature Gran % (Auto) 0.2 Neut % (Auto) 62.0 Lymph % (Auto) 28.0 [place] % (Auto) 7.7 Eos % (Auto) 1.5 Baso % (Auto) 0.6 Neut # (Auto) 5.77 Lymph # (Auto) 2.61 [place] # (Auto) 0.72 H Eos # (Auto) 0.14 Baso # (Auto) 0.06 Immature Gran # (Auto) 0.02 Absolute Nucleated RBC Nucleated RBC % (auto) Neutrophils % (Manual) Band Neutrophils % Lymphocytes % (Manual) Prolymphocyte % Reactive Lymphs % (Man) Monocytes % (Manual) Eosinophils % (Manual) Basophils % (Manual) Metamyelocytes % (Man) Myelocytes % (Man) Promyelocytes % (Man) Blast Cells % (Manual) Plasma Cell % (Manual) Other Cells % Nucleated RBC % Neutrophils # (Manual) Band Neutrophils # Total Absolute Neuts Lymphocytes # (Manual) Prolymphocyte # Reactive Lymphs # Total Abs Lymphocytes Monocytes # (Manual) Eosinophils # (Manual) Basophils # (Manual) Metamyelocytes # (Man) Myelocytes # (Manual) Promyelocytes # (Man) Blast Cells # (Man) Plasma Cell # (Manual) Other Cells # Nucleated RBCs # (Man) Hypersegmented Neuts Hyposegmented Neuts Hypogranular Neuts Large Granular Lymphs # Lrg Granular Lymphs Hairy Cells Smudge Cells Toxic Granulation Toxic Vacuolation Dohle Bodies Nancy Rods Platelet Estimate Hypogranular Platelets Clumped Platelets Giant Platelets Platelet Satelliting RBC Morphology Polychromasia Hypochromasia Poikilocytosis Basophilic Stippling Anisocytosis Microcytosis Macrocytosis Spherocytes Pappenheimer Bodies Sickle Cells Target Cells Tear Drop Cells Ovalocytes Stomatocytes [place] Bodies Echinocytes Acanthocytes (Spur) Rouleaux RBC Agglutinates Schistocytes RBC Morph Comment Sezary Cell Sodium 138 Potassium Chloride 106 Carbon Dioxide 26 Anion Gap 6.0 BUN 14 Creatinine 0.93 Est Cr Clr Drug Dosing 80.1 Est GFR ( Amer) 82.5 Est GFR (Non-Af Amer) 71.2 BUN/Creatinine Ratio 15.1 Glucose 168 H Calcium 10.3 H Total Bilirubin 0.4 AST ALT 49 Alkaline Phosphatase 57 Troponin I < 0.015 Total Protein 7.7 Albumin 4.1 Globulin 3.6 Albumin/Globulin Ratio 1.1 Urine Color Urine Appearance (Clear) Urine pH (4.5-7.5) Ur Specific [place] (1.000-1.030) Urine Protein (Negative) Urine Glucose (UA) (Negative) Urine Ketones (Negative) Urine Blood (Negative) Urine Nitrite (Negative) Urine Bilirubin (Negative) Urine Urobilinogen (Negative) Ur Leukocyte Esterase (Negative) Urine WBC (Auto) (0-5) /hpf Urine RBC (Auto) (0-4) /hpf U Hyaline Cast (Auto) (0-5) /lpf U Epithel Cells (Auto) (0-5) /lpf Urine Bacteria (Auto) (Negative) COVID-19 Eval Order CovFluRsv at [facility] SARS-CoV-2 (PCR) (Negative) Influenza Type A (PCR) (Neg) Influenza Type B (PCR) (Neg) RSV (RT-PCR) (Neg) 02/04/21 Range/Units 03:30 WBC RBC Hgb Hct MCV MCH MCHC RDW Std Deviation RDW Coeff of Nicolas Plt Count MPV Immature Gran % (Auto) Neut % (Auto) Lymph % (Auto) [place] % (Auto) Eos % (Auto) Baso % (Auto) Neut # (Auto) Lymph # (Auto) [place] # (Auto) Eos # (Auto) Baso # (Auto) Immature Gran # (Auto) Absolute Nucleated RBC Nucleated RBC % (auto) Neutrophils % (Manual) Band Neutrophils % Lymphocytes % (Manual) Prolymphocyte % Reactive Lymphs % (Man) Monocytes % (Manual) Eosinophils % (Manual) Basophils % (Manual) Metamyelocytes % (Man) Myelocytes % (Man) Promyelocytes % (Man) Blast Cells % (Manual) Plasma Cell % (Manual) Other Cells % Nucleated RBC % Neutrophils # (Manual) Band Neutrophils # Total Absolute Neuts Lymphocytes # (Manual) Prolymphocyte # Reactive Lymphs # Total Abs Lymphocytes Monocytes # (Manual) Eosinophils # (Manual) Basophils # (Manual) Metamyelocytes # (Man) Myelocytes # (Manual) Promyelocytes # (Man) Blast Cells # (Man) Plasma Cell # (Manual) Other Cells # Nucleated RBCs # (Man) Hypersegmented Neuts Hyposegmented Neuts Hypogranular Neuts Large Granular Lymphs # Lrg Granular Lymphs Hairy Cells Smudge Cells Toxic Granulation Toxic Vacuolation Dohle Bodies Nancy Rods Platelet Estimate Hypogranular Platelets Clumped Platelets Giant Platelets Platelet Satelliting RBC Morphology Polychromasia Hypochromasia Poikilocytosis Basophilic Stippling Anisocytosis Microcytosis Macrocytosis Spherocytes Pappenheimer Bodies Sickle Cells Target Cells Tear Drop Cells Ovalocytes Stomatocytes [place] Bodies Echinocytes Acanthocytes (Spur) Rouleaux RBC Agglutinates Schistocytes RBC Morph Comment Sezary Cell Sodium Potassium Chloride Carbon Dioxide Anion Gap BUN Creatinine Est Cr Clr Drug Dosing Est GFR ( Amer) Est GFR (Non-Af Amer) BUN/Creatinine Ratio Glucose Calcium Total Bilirubin AST ALT Alkaline Phosphatase Troponin I Total Protein Albumin Globulin Albumin/Globulin Ratio Urine Color Urine Appearance (Clear) Urine pH (4.5-7.5) Ur Specific [place] (1.000-1.030) Urine Protein (Negative) Urine Glucose (UA) (Negative) Urine Ketones (Negative) Urine Blood (Negative) Urine Nitrite (Negative) Urine Bilirubin (Negative) Urine Urobilinogen (Negative) Ur Leukocyte Esterase (Negative) Urine WBC (Auto) (0-5) /hpf Urine RBC (Auto) (0-4) /hpf U Hyaline Cast (Auto) (0-5) /lpf U Epithel Cells (Auto) (0-5) /lpf Urine Bacteria (Auto) (Negative) COVID-19 Eval Order SARS-CoV-2 (PCR) NEGATIVE (Negative) Influenza Type A (PCR) Negative (Neg) Influenza Type B (PCR) Negative (Neg) RSV (RT-PCR) Negative (Neg) Imaging Data Attestation: I personally reviewed and interpreted this imaging study as follows: Radiologist's Impression: Head CT 02/03/21 23:41 CT SCAN OF THE BRAIN WITHOUT IV CONTRAST CLINICAL HISTORY: Headache. Hypertension. COMPARISON STUDY: No priors. TECHNIQUE: Unenhanced axial CT scan of the brain is performed from the vertex to the skull base. A dose lowering technique was utilized adhering to the principles of ALARA. CT DOSE: 614.27 mGy.cm FINDINGS: Brain parenchyma: The brain parenchyma is normal in appearance. There is no hemorrhage, mass effect, or evidence of acute territorial ischemia by CT cri teria. Nicole-white matter differentiation is preserved. No extra-axial fluid collection is seen. Ventricles, sulci, cisterns: Normal in configuration. Intracranial vasculature: There is atherosclerotic calcification of the vertebral arteries. Calvarium: Unremarkable. Sinuses and mastoids: The visualized paranasal sinuses are clear. The mastoid air cells are well pneumatized. Orbits: The bony orbits are grossly intact. IMPRESSION: There is no hemorrhage, mass effect, or evidence of acute territorial ischemia by CT criteria. ACT 112: Negative or not required by law. Electronically signed by: Mika Hayes M.D. 02/04/2021 7:25 AM ECG Data Attestation: I personally reviewed and interpreted this ECG as follows: Indication: + other Rate (beats per minute): 65 Rhythm: + normal sinus ECG Intervals/blocks: + First degree AV block ECG ST segments: + Normal ST segments Comparison ECG Date: no prior available MDM Narrative Continuous ex assistant/program director: Order was placed for continuous ex assistant/program director. Patient was placed on the ex assistant/program director. Patient was noted to be in normal sinus rhythm at an initial rate of 72 bpm. The patient is a 50-year-old female who presents today complaining of headache. Patient has been dealing with headaches for the past several months. She is significantly hypertensive on arrival here with blood pressure of 226/124. Her labs are unremarkable, CT is without any acute findings. An EKG is unremarkable, troponin is not elevated. Patient's headache was treated with multiple medications which did improve her pain, however this did not improve her blood pressure. She was given 10 mg IV labetalol with minimal improvement of the blood pressure. Given her significantly elevated blood pressure and continued headaches, I did feel that admission was warranted. [facility] to evaluate the patient for further care. Impression & Plan Hypertensive urgency, Acute headache Discharge Plan Visit Data Chief Complaint: Headache Stated Complaint: BAD HEADACHE ED Provider: Vasu Alvarado ED Midlevel Provider: Constance Lees Discharge Problem: Hypertensive urgency, Acute headache Patient Disposition: Admitted As Inpatient Discharge Instructions Interventions: ED Discharge Assessment Last Done: 02/04/21 05:13 Discharge Problem: Acute headache Qualifiers: Headache type: unspecified Intractability: not intractable Qualified Code(s): R51.9 - Headache, unspecified
[2021-02-04 08:01] LABS: Basophils # (auto) 0.05 K/uL (0-0.2); Basophils % (auto) 0.6 %; Eosinophils # (auto) 0.08 K/uL (0-0.5); Hematocrit (blood only) 36.6 % (37-47); Hemoglobin 12.5 g/dL (12.0-16.0); Immature Granulocytes # (auto) 0.01 K/uL (0.00-0.02); Immature Granulocytes % (auto) 0.1 %; Lymphocytes # (auto) 2.94 K/uL (1.2-3.4); Lymphocytes % (auto) 37.7 %; Mean Corpuscular Hemoglobin 29.8 pg (25-34); Mean Corpuscular Hgb Conc 34.2 g/dL (32-36); Mean Corpuscular Volume 87.1 fL (80-100); Mean Platelet Volume 9.2 fL (7.4-10.4); Monocytes # (auto) 0.54 K/uL (0.11-0.59); Monocytes % (auto) 6.9 %; Neutrophils # (auto) 4.18 K/uL (1.4-6.5); Neutrophils % (auto) 53.7 %; Platelet Count 356 K/uL (130-400); RDW Coefficient of Variation 13.3 % (11.5-14.5); RDW Standard Deviation 42.5 fL (36.4-46.3)
[2021-02-04] MEDS: INSULIN GLARGINE SOLOSTAR 100 UNITS/ML 3 ML PEN SC SCH (08:14)
[2021-02-04] MEDS: PANTOprazole 40 MG TAB PO SCH (08:15)
[2021-02-04] MEDS: CYANOCOBALAMIN 500 MCG TABLET (VITAMIN B-12) PO SCH (08:15)
[2021-02-04] MEDS: ASPIRIN 81 MG ECTAB PO SCH (08:15)
[2021-02-04] MEDS: CLOPIDOGREL BISULFATE 75 MG TAB PO SCH (08:15)
[2021-02-04] MEDS: CHOLECALCIFEROL 1,000 UNITS 25 MCG TAB PO SCH (08:15)
[2021-02-04] MEDS: lisinopril 40 MG TAB PO SCH (08:16)
[2021-02-04] MEDS: DULoxetine HCL 60 MG CAP PO SCH (08:16)
[2021-02-04] MEDS: PREGABALIN 75 MG CAP PO SCH ×2 (08:19→21:58)
[2021-02-04 08:28] LABS: Blood Urea Nitrogen 14 mg/dl (7-18); Calcium 10.1 mg/dl (8.5-10.1); Carbon Dioxide 24 mmol/L (21-32); Chloride 108 mmol/L (98-107); Est GFR (African American) 97.5; Est GFR (Non-African American) 84.1; Glucose 138 mg/dl (70-99); Magnesium 2.3 mg/dl (1.8-2.4); Potassium 3.8 mmol/L (3.5-5.1); Sodium 139 mmol/L (136-145)
[2021-02-04 08:33] LABS: Troponin I < 0.015 ng/ml (0-0.045)
[2021-02-04] MEDS ORDERED: METOPROLOL TARTRATE 25 MG TAB PO SCH (09:00)
[2021-02-04 09:01] LABS: Estimated Average Glucose 171 mg/dl; Hemoglobin A1C 7.6 % (4.5-5.6)
[2021-02-04] MEDS: LORazepam 0.5 MG TAB PO PRN ×2 (10:08→21:23)
--- NOTE | 2021-02-04 10:15 | Consultation Report ---
DATE OF CONSULTATION: 02/04/2021 NEUROLOGY CONSULTATION NOTE CHIEF COMPLAINT: Chronic headaches and accelerated hypertension. HISTORY OF PRESENT ILLNESS: A 50-year-old woman with a history of essential hypertension, type 2 diabetes, hyperlipidemia, CAD on aspirin and Plavix, and vitamin B12 deficiency, admitted from the Emergency Department last evening for severe headache. The patient states headaches have been ongoing since early September. Headaches are predominantly left sided. They are frontal headache described as a "ice pick or ice cream" type headache. They are associated with nausea and vomiting. She denies any light or sound sensitivity. She denies any new medications. She denies any other associated symptoms with these headaches. She occasionally does have some intermittent blurry vision, which is short lasting. Headaches have progressed since September. She is following with her PCP and it was thought that her blood pressure was contributing. On arrival in the Emergency Department, her blood pressure was 226/124 and the patient was given labetalol, Ativan, Benadryl, Toradol, and promethazine. This morning, the patient is very drowsy. She is sleeping in the bedroom. Headache has improved. Neurology was consulted on admission for headaches. ALLERGIES: ____, GLIPIZIDE, PENICILLIN, PREDNISONE, STATINS, SULFA, TRAZODONE. PAST MEDICAL HISTORY: Type 2 diabetes, retinopathy, hyperlipidemia, hypertension, CAD, vitamin B12 deficiency, vitamin D deficiency, restless legs syndrome, epigastric abdominal pain, adjustment depression, history of tobacco use. PAST SURGICAL HISTORY: Left carpal tunnel surgery, cardiac catheterization, EGD, laparoscopic biopsy, ligation of oviduct, cholecystectomy, tonsillectomy, adenoidectomy, vaginal hysterectomy. HOME MEDICATIONS: Aspirin 81 mg daily, Plavix 75 mg daily, vitamin B12 1000 mcg tablet, Cymbalta 60 mg daily, lisinopril 40 mg daily, metformin 1000 mg b.i.d., metoprolol 75 mg b.i.d., fish oil, Zofran as needed, Protonix, pravastatin 40 mg daily, Lyrica 225 mg twice daily, Compazine as needed, semaglutide 0.5 mg weekly. FAMILY HISTORY: Her father had COPD, heart attack, lung cancer. Mother had hypertension, hyperlipidemia, diabetes. SOCIAL HISTORY: She currently lives alone. She smoked for 20 years. She smokes on occasion. Denies any alcohol use, no drug use. REVIEW OF SYSTEMS: All other review of systems was negative except as noted above in the HPI. PHYSICAL EXAMINATION: VITAL SIGNS: Blood pressure 189/135 mmHg, pulse is 81, respiratory rate 16, temperature is 36.4 degrees Celsius, oxygen saturation is 96% on room air. GENERAL: The patient appears normally developed, well nourished, in no acute distress. HEENT: Her head is normocephalic and atraumatic. Normal eyelids, normal conjunctivae. NECK: Supple. LUNGS: Normal respiratory effort. CARDIOVASCULAR: Pulses were normal. ABDOMEN: Nondistended. SKIN: No skin rash. There was a tattoo noted on her lower. PSYCHIATRIC: Normal mood and normal affect. APPEARANCE: She is in no acute distress. NEUROLOGIC: She is awake, alert and lethargic, but oriented to person, place and time. Attention is normal. Knowledge is appropriate. Comprehension is intact. Speech is clear. No visual defect on confrontation. Pupils are symmetric and reactive to light. Extraocular muscles are intact. Facial sensation intact. Face is symmetric. Palate is symmetric. Good shoulder shrug. Tongue is midline. Gait and evaluation deferred. She has no ataxia with [id number] testing, no tremor. Sensation is intact to light touch. Muscle tone is normal. Muscle exam is 5/5 throughout. Reflexes, 2+ at the knees, attenuated at both ankles. No ankle clonus, and Og sign is negative bilaterally. DIAGNOSTIC TESTING AND LABORATORY VALUES: WBC 7.80, hemoglobin 12.5, platelet count 356. Sodium is 138, potassium is pending, chloride is 106, carbon dioxide is 26, BUN is 14, creatinine 0.93, glucose is 168. Hemoglobin A1c is pending. Calcium is 10.3, ALT is 49. Troponin is negative. Urinalysis shows trace leukocyte esterase. CT head noncontrast shows no hemorrhage, mass effect, or evidence of acute ischemia. ASSESSMENT AND PLAN: A 50-year-old woman admitted with hypertensive urgency as well as presumed exacerbation of a chronic migraine. The patient is currently very lethargic, which is likely due to the medications given in the ED. Neurological exam is nonfocal. CT head noncontrast is normal. Agree with obtaining MRI brain with and without contrast to exclude etiology such as PRES. In addition, would also add an MRA intracranial for further evaluation. In regards to headache management, the patient is currently on high dose Lyrica. While inpatient can use 30 mg of IV Toradol q. 12 hours as needed as well as Reglan 10 mg IV q. 8 hours as needed in addition with 25 mg of Benadryl IV q. 8 hours as needed. Headaches may improve with control of blood pressure as her diastolic blood pressures were markedly elevated. If needed, may consider adding Topamax for long-term headache management. For now Neurology will continue to follow up.
[2021-02-04] MEDS ORDERED: amLODIPine BESYLATE 5 MG TAB PO ONE (11:16)
--- NOTE | 2021-02-04 11:23 | Communication Note ---
Date of Service: February 04, 2021 50-year-old man with history of DM type II CAD, hypertension, GERD, vitamin D and B12 deficiency, restless leg syndrome, who presents to the ER with severe headaches started since September, . History and physical exam as detailed by Dr. Arenas in H&P this morning. Patient seen and examined Reports persistent headache and occasional nausea Denied blurry vision or focal weakness or sensory abnormalities Denied slurred speech Denied chest pain, SOB, cough Physical exam notable for elevated blood pressure CT head did not show any abnormality Echocardiogram showed moderate concentric LVH, EF of 60 to 65% without any valvular disease. -Hypertensive emergency Follow-up MRI brain. Appreciate neurology's evaluation and recommendation Optimize pain control. Added amlodipine to lisinopril for better blood pressure control. BP trending lower now than on admission Economic Research Analyst on board Other plans as detailed in H&P by Dr Arenas this morning
--- NOTE | 2021-02-04 13:09 | Cardiology Consultation ---
Date of Consultation February 04, 2021 Assessment & Plan (1) Hypertensive emergency without congestive heart failure: Patient is a 50-year-old female with history as outlined in HPI but notable for longstanding hypertension labile, premature atherosclerotic coronary disease with low HDL dyslipidemia who presents with several months history of headache and hypertension. Adjustments in medical therapies did not control symptoms and patient presented last night with severe headache and marked hypertension. Head CT last night and MRI today without acute phenomena. Blood pressures are trending slightly lower with medical therapies. I discussed management of hypertension in detail with patient given longstanding history will likely require multiple drug regimen including 3-4 medications. Patient has received IV hydralazine and IV labetalol since admission. Amlodipine added this morning. Plan: We will increase metoprolol titrate to 100 mg twice per day. Increase amlodipine to 5 mg twice per day, continue lisinopril 40 mg/day. As noted hydrochlorothiazide recently discontinued due to mild elevation in calcium levels patient may ultimately require diuretic. If marked hypertension persists we will add clonidine to regimen Given history of premature atherosclerosis renal vascular ultrasound will be ordered (2) Chronic coronary artery disease: Stable without cardiac symptoms troponin not elevated EKG will be ordered (3) Dyslipidemia with low high density lipoprotein (HDL) cholesterol with hypertriglyceridemia due to type 2 diabetes mellitus: Patient with past history of poor statin tolerance currently on pravastatin. Notes previously on fenofibrate in association with pravastatin but switch to omega-3 fish oils We will consider adding ezetimibe suspect patient will warrant referral for management possible PCSK9 inhibitor post discharge History of Present Illness Reason for Consultation: Hypertensive urgency Requesting Physician: Dr Fournier Attending Physician: Tami Fournier MD History of Present Illness Patient is a complex 50-year-old female with ongoing issues include 1. Longstanding hypertension 2. Type 2 diabetes mellitus with neuropathy 3. Atherosclerotic coronary disease status post drug-eluting stent to the right coronary posterior lateral branch November 2011, drug-eluting stent x2 to the mid left anterior descending June 2014 4. Low HDL dyslipidemia with poor statin intolerance 5. Restless leg syndrome Patient presents this admission noting persistent symptoms with severe headache and marked systolic hypertension since "before Jose". Adjustments in medical therapies and ER visits have not aided in symptoms or blood pressure. She describes headache as ice pick type discomfort in her left temporal area. S ymptoms associated with nausea and rare emesis. Notes blood pressures have been labile and persistently elevated. Adjustments included increase in the Toprol dosing. Of note hydrochlorothiazide recently discontinued due to mildly elevated calcium level. Patient denies history rheumatic fever scarlet fever or heart murmur. Notes no history of renal or hepatic disease. Notes no recent fevers chills or infections. No bleeding difficulties. Has had multiple difficulties with poor drug tolerance as well as chronic GI upset No claudication symptoms no acute neurologic findings other than severe headache and mild visual blurring. Initial CT scan unrevealing. MRI brain pending Since admission patient has received IV hydralazine and IV labetalol with some improvement in blood pressure symptoms remain persistent. She currently denies any chest pains tachypalpitations or worsening shortness of breath. Notes no orthopnea PND or peripheral edema. No recent anginal symptoms or complaints. Past surgical history: Tonsillectomy/adenoidectomy Tubal ligation Vaginal hysterectomy Cholecystectomy Family history: Positive for hypertension and atherosclerotic coronary disease Allergies Allergy/AdvReac Type Severity Reaction Status Date / Time dicyclomine Allergy Unknown GI UPSET Unverified 02/04/21 00:14 glipizide Allergy Unknown GI UPSET Unverified 02/04/21 00:14 Penicillins Allergy Unknown RASH Unverified 02/04/21 00:14 prednisone Allergy Unknown GI UPSET Unverified 02/04/21 00:14 [id number] Reductase Allergy Unknown JOINTS ACHE Unverified 02/04/21 00:14 Inhibitor Sulfa (Sulfonamide Allergy Unknown UNKNOWN Unverified 02/04/21 00:14 Antibiotics) trazodone Allergy Unknown EXCESSIVE Unverified 02/04/21 00:14 SLEEPING Home Medications Medication Instructions Recorded Confirmed Type aspirin [Aspirin Low Dose] 81 mg PO DAILY 02/04/21 02/04/21 History cholecalciferol (vitamin D3) 125 mcg PO DAILY 02/04/21 02/04/21 History clopidogrel 75 mg PO DAILY 02/04/21 02/04/21 History cyanocobalamin (vitamin B-12) 1,000 mcg PO DAILY 02/04/21 02/04/21 History [Vitamin B-12] duloxetine 60 mg PO DAILY 02/04/21 02/04/21 History lisinopril 40 mg PO DAILY 02/04/21 02/04/21 History metformin 1,000 mg PO BID 02/04/21 02/04/21 History metoprolol tartrate 75 mg PO BID 02/04/21 02/04/21 History omega 3-jbm-vav-fish oil [Fish Oil] 1 cap PO BID 02/04/21 02/04/21 History ondansetron HCl 4 mg PO Q6 PRN 02/04/21 02/04/21 History pantoprazole 40 mg PO DAILY 02/04/21 02/04/21 History pravastatin 40 mg PO QPM 02/04/21 02/04/21 History pregabalin 225 mg PO BID 02/04/21 02/04/21 History prochlorperazine maleate 2.5 mg PO Q6 PRN 02/04/21 02/04/21 History semaglutide [Ozempic] 0.5 mg SUBCUT WK 02/04/21 02/04/21 History Patient History Social History Smoking Status: Current some day smoker Second Hand Exposure: Yes; Do You Dip or Chew Tobacco: No; Tobacco Cessation Education Requested by Patient: No Hx Alcohol Use: No Hx Substance Use: No Preferred Language: Italian Communication Ability: Effective Material Liaison Required: No Beliefs That Will Affect Care: None Current Living Situation: Alone Other Information That Helps Us Care for You: No Feels Safe at Home: Yes Safety Concerns: Feels Safe At This Time Assistive Devices: Glasses Review of Systems Review of Systems: All systems reviewed & are unremarkable except as noted in HPI & below Physical Exam Constitutional: + obese Complaining of severe headache Eyes: PERRL, conjunctivae normal, anicteric sclerae ENMT: external ear and nose normal, oropharynx normal Neck: trachea midline, no thyromegaly Respiratory: normal respiratory effort, lungs clear to auscultation Cardiovascular: Rate/Rhythm: regular rate and regular rhythm Heart Sounds: normal S1 and normal S2; no gallop and no murmur Palpation: normal PMI Vessels: normal carotid upstroke and radial pulses present; no JVD and no carotid bruit Extremities: no edema Gastrointestinal (Abdomen): normal bowel sounds, soft, nontender, no hepatosplenomegaly Percussion/Palpation: no pulsatile mass No audible bruits Musculoskeletal: no cyanosis or clubbing, extremities motor strength 5/5 Skin: no rashes, warm and dry Neurologic: PERRL, EOMI, accommodation nl, no face palsy, no dysarthria Psychiatric: A+Ox3, euthymic affect Results & Data ([facility]) Vital Signs (Past 12 Hours) Vital Signs Temp Pulse Pulse Resp BP BP Pulse Ox 02/04/21 09:46 75 02/04/21 08:36 36.8 C 74 18 142/74 H 97 02/04/21 05:34 36.4 C L 81 16 189/135 H 96 02/04/21 05:00 75 22 174/110 H 98 02/04/21 04:30 70 24 163/120 H 97 02/04/21 04:00 73 21 178/114 H 96 02/04/21 03:30 74 21 173/118 H 96 02/04/21 03:00 75 22 161/102 H 95 02/04/21 02:44 75 22 189/110 H 93 02/04/21 02:30 88 19 190/107 H 93 02/04/21 02:27 75 18 198/102 H 94 02/04/21 02:00 223/123 H 02/04/21 01:30 78 20 226/113 H 94 Laboratory Results Laboratory Results - last 24 hr 02/03/21 02/03/21 02/03/21 23:30 23:30 23:30 WBC Cancelled RBC Cancelled Hgb Cancelled Hct Cancelled MCV Cancelled MCH Cancelled MCHC Cancelled RDW Std Deviation Cancelled RDW Coeff of Nicolas Cancelled Plt Count Cancelled MPV Cancelled Immature Gran % (Auto) Cancelled Neut % (Auto) Cancelled Lymph % (Auto) Cancelled [place] % (Auto) Cancelled Eos % (Auto) Cancelled Baso % (Auto) Cancelled Neut # (Auto) Cancelled Lymph # (Auto) Cancelled [place] # (Auto) Cancelled Eos # (Auto) Cancelled Baso # (Auto) Cancelled Immature Gran # (Auto) Cancelled Absolute Nucleated RBC Cancelled Nucleated RBC % (auto) Cancelled Neutrophils % (Manual) Cancelled Band Neutrophils % Cancelled Lymphocytes % (Manual) Cancelled Prolymphocyte % Cancelled Reactive Lymphs % (Man) Cancelled Monocytes % (Manual) Cancelled Eosinophils % (Manual) Cancelled Basophils % (Manual) Cancelled Metamyelocytes % (Man) Cancelled Myelocytes % (Man) Cancelled Promyelocytes % (Man) Cancelled Blast Cells % (Manual) Cancelled Plasma Cell % (Manual) Cancelled Other Cells % Cancelled Nucleated RBC % Cancelled Neutrophils # (Manual) Cancelled Band Neutrophils # Cancelled Total Absolute Neuts Cancelled Lymphocytes # (Manual) Cancelled Prolymphocyte # Cancelled Reactive Lymphs # Cancelled Total Abs Lymphocytes Cancelled Monocytes # (Manual) Cancelled Eosinophils # (Manual) Cancelled Basophils # (Manual) Cancelled Metamyelocytes # (Man) Cancelled Myelocytes # (Manual) Cancelled Promyelocytes # (Man) Cancelled Blast Cells # (Man) Cancelled Plasma Cell # (Manual) Cancelled Other Cells # Cancelled Nucleated RBCs # (Man) Cancelled Hypersegmented Neuts Cancelled Hyposegmented Neuts Cancelled Hypogranular Neuts Cancelled Large Granular Lymphs Cancelled # Lrg Granular Lymphs Cancelled Hairy Cells Cancelled Smudge Cells Cancelled Toxic Granulation Cancelled Toxic Vacuolation Cancelled Dohle Bodies Cancelled Nancy Rods Cancelled Platelet Estimate Cancelled Hypogranular Platelets Cancelled Clumped Platelets Cancelled Giant Platelets Cancelled Platelet Satelliting Cancelled RBC Morphology Cancelled Polychromasia Cancelled Hypochromasia Cancelled Poikilocytosis Cancelled Basophilic Stippling Cancelled Anisocytosis Cancelled Microcytosis Cancelled Macrocytosis Cancelled Spherocytes Cancelled Pappenheimer Bodies Cancelled Sickle Cells Cancelled Target Cells Cancelled Tear Drop Cells Cancelled Ovalocytes Cancelled Stomatocytes Cancelled [place] Bodies Cancelled Echinocytes Cancelled Acanthocytes (Spur) Cancelled Rouleaux Cancelled RBC Agglutinates Cancelled Schistocytes Cancelled RBC Morph Comment Cancelled Sezary Cell Cancelled Sodium Cancelled Potassium Cancelled Chloride Cancelled Carbon Dioxide Cancelled Anion Gap Cancelled BUN Cancelled Creatinine Cancelled Est Cr Clr Drug Dosing Cancelled Est GFR ( Amer) Cancelled Est GFR (Non-Af Amer) Cancelled BUN/Creatinine Ratio Cancelled Glucose Cancelled POC Glucose Estimat Average Glucose Hemoglobin A1c Calcium Cancelled Magnesium Total Bilirubin Cancelled AST Cancelled ALT Cancelled Alkaline Phosphatase Cancelled Troponin I Cancelled Total Protein Cancelled Albumin Cancelled Globulin Cancelled Albumin/Globulin Ratio Cancelled Urine Color Yellow Urine Appearance Clear Urine pH 7.5 Ur Specific Imler 1.009 Urine Protein Negative Urine Glucose (UA) Negative Urine Ketones Negative Urine Blood Negative Urine Nitrite Negative Urine Bilirubin Negative Urine Urobilinogen Negative Ur Leukocyte Esterase Trace H Urine WBC (Auto) 1-5 Urine RBC (Auto) 0-4 U Hyaline Cast (Auto) 0 U Epithel Cells (Auto) 0-5 Urine Bacteria (Auto) Negative COVID-19 Eval Order SARS-CoV-2 (PCR) Influenza Type A (PCR) Influenza Type B (PCR) RSV (RT-PCR) 02/04/21 02/04/21 02/04/21 00:13 00:13 03:30 WBC 9.32 RBC 4.25 Hgb 12.7 Hct 37.6 MCV 88.5 MCH 29.9 MCHC 33.8 RDW Std Deviation 42.9 RDW Coeff of Nicolas 13.2 Plt Count 316 MPV 9.4 Immature Gran % (Auto) 0.2 Neut % (Auto) 62.0 Lymph % (Auto) 28.0 [place] % (Auto) 7.7 Eos % (Auto) 1.5 Baso % (Auto) 0.6 Neut # (Auto) 5.77 Lymph # (Auto) 2.61 [place] # (Auto) 0.72 H Eos # (Auto) 0.14 Baso # (Auto) 0.06 Immature Gran # (Auto) 0.02 Absolute Nucleated RBC Nucleated RBC % (auto) Neutrophils % (Manual) Band Neutrophils % Lymphocytes % (Manual) Prolymphocyte % Reactive Lymphs % (Man) Monocytes % (Manual) Eosinophils % (Manual) Basophils % (Manual) Metamyelocytes % (Man) Myelocytes % (Man) Promyelocytes % (Man) Blast Cells % (Manual) Plasma Cell % (Manual) Other Cells % Nucleated RBC % Neutrophils # (Manual) Band Neutrophils # Total Absolute Neuts Lymphocytes # (Manual) Prolymphocyte # Reactive Lymphs # Total Abs Lymphocytes Monocytes # (Manual) Eosinophils # (Manual) Basophils # (Manual) Metamyelocytes # (Man) Myelocytes # (Manual) Promyelocytes # (Man) Blast Cells # (Man) Plasma Cell # (Manual) Other Cells # Nucleated RBCs # (Man) Hypersegmented Neuts Hyposegmented Neuts Hypogranular Neuts Large Granular Lymphs # Lrg Granular Lymphs Hairy Cells Smudge Cells Toxic Granulation Toxic Vacuolation Dohle Bodies Nancy Rods Platelet Estimate Hypogranular Platelets Clumped Platelets Giant Platelets Platelet Satelliting RBC Morphology Polychromasia Hypochromasia Poikilocytosis Basophilic Stippling Anisocytosis Microcytosis Macrocytosis Spherocytes Pappenheimer Bodies Sickle Cells Target Cells Tear Drop Cells Ovalocytes Stomatocytes [place] Bodies Echinocytes Acanthocytes (Spur) Rouleaux RBC Agglutinates Schistocytes RBC Morph Comment Sezary Cell Sodium 138 Potassium Chloride 106 Carbon Dioxide 26 Anion Gap 6.0 BUN 14 Creatinine 0.93 Est Cr Clr Drug Dosing 80.1 Est GFR ( Amer) 82.5 Est GFR (Non-Af Amer) 71.2 BUN/Creatinine Ratio 15.1 Glucose 168 H POC Glucose Estimat Average Glucose Hemoglobin A1c Calcium 10.3 H Magnesium Total Bilirubin 0.4 AST ALT 49 Alkaline Phosphatase 57 Troponin I < 0.015 Total Protein 7.7 Albumin 4.1 Globulin 3.6 Albumin/Globulin Ratio 1.1 Urine Color Urine Appearance Urine pH Ur Specific [place] Urine Protein Urine Glucose (UA) Urine Ketones Urine Blood Urine Nitrite Urine Bilirubin Urine Urobilinogen Ur Leukocyte Esterase Urine WBC (Auto) Urine RBC (Auto) U Hyaline Cast (Auto) U Epithel Cells (Auto) Urine Bacteria (Auto) COVID-19 Eval Order CovFluRsv at [facility] SARS-CoV-2 (PCR) Influenza Type A (PCR) Influenza Type B (PCR) RSV (RT-PCR) 02/04/21 02/04/21 02/04/21 03:30 07:41 07:41 WBC 7.80 RBC 4.20 Hgb 12.5 Hct 36.6 L MCV 87.1 MCH 29.8 MCHC 34.2 RDW Std Deviation 42.5 RDW Coeff of Nicolas 13.3 Plt Count 356 MPV 9.2 Immature Gran % (Auto) 0.1 Neut % (Auto) 53.7 Lymph % (Auto) 37.7 [place] % (Auto) 6.9 Eos % (Auto) 1.0 Baso % (Auto) 0.6 Neut # (Auto) 4.18 Lymph # (Auto) 2.94 [place] # (Auto) 0.54 Eos # (Auto) 0.08 Baso # (Auto) 0.05 Immature Gran # (Auto) 0.01 Absolute Nucleated RBC Nucleated RBC % (auto) Neutrophils % (Manual) Band Neutrophils % Lymphocytes % (Manual) Prolymphocyte % Reactive Lymphs % (Man) Monocytes % (Manual) Eosinophils % (Manual) Basophils % (Manual) Metamyelocytes % (Man) Myelocytes % (Man) Promyelocytes % (Man) Blast Cells % (Manual) Plasma Cell % (Manual) Other Cells % Nucleated RBC % Neutrophils # (Manual) Band Neutrophils # Total Absolute Neuts Lymphocytes # (Manual) Prolymphocyte # Reactive Lymphs # Total Abs Lymphocytes Monocytes # (Manual) Eosinophils # (Manual) Basophils # (Manual) Metamyelocytes # (Man) Myelocytes # (Manual) Promyelocytes # (Man) Blast Cells # (Man) Plasma Cell # (Manual) Other Cells # Nucleated RBCs # (Man) Hypersegmented Neuts Hyposegmented Neuts Hypogranular Neuts Large Granular Lymphs # Lrg Granular Lymphs Hairy Cells Smudge Cells Toxic Granulation Toxic Vacuolation Dohle Bodies Nancy Rods Platelet Estimate Hypogranular Platelets Clumped Platelets Giant Platelets Platelet Satelliting RBC Morphology Polychromasia Hypochromasia Poikilocytosis Basophilic Stippling Anisocytosis Microcytosis Macrocytosis Spherocytes Pappenheimer Bodies Sickle Cells Target Cells Tear Drop Cells Ovalocytes Stomatocytes [place] Bodies Echinocytes Acanthocytes (Spur) Rouleaux RBC Agglutinates Schistocytes RBC Morph Comment Sezary Cell Sodium 139 Potassium 3.8 Chloride 108 H Carbon Dioxide 24 Anion Gap 8.0 BUN 14 Creatinine 0.81 Est Cr Clr Drug Dosing 99.0 Est GFR ( Amer) 97.5 Est GFR (Non-Af Amer) 84.1 BUN/Creatinine Ratio 17.0 Glucose 138 H POC Glucose Estimat Average Glucose Hemoglobin A1c Calcium 10.1 Magnesium 2.3 Total Bilirubin AST ALT Alkaline Phosphatase Troponin I < 0.015 Total Protein Albumin Globulin Albumin/Globulin Ratio Urine Color Urine Appearance Urine pH Ur Specific [place] Urine Protein Urine Glucose (UA) Urine Ketones Urine Blood Urine Nitrite Urine Bilirubin Urine Urobilinogen Ur Leukocyte Esterase Urine WBC (Auto) Urine RBC (Auto) U Hyaline Cast (Auto) U Epithel Cells (Auto) Urine Bacteria (Auto) COVID-19 Eval Order SARS-CoV-2 (PCR) NEGATIVE Influenza Type A (PCR) Negative Influenza Type B (PCR) Negative RSV (RT-PCR) Negative 02/04/21 02/04/21 02/04/21 07:41 07:47 11:32 WBC RBC Hgb Hct MCV MCH MCHC RDW Std Deviation RDW Coeff of Nicolas Plt Count MPV Immature Gran % (Auto) Neut % (Auto) Lymph % (Auto) [place] % (Auto) Eos % (Auto) Baso % (Auto) Neut # (Auto) Lymph # (Auto) [place] # (Auto) Eos # (Auto) Baso # (Auto) Immature Gran # (Auto) Absolute Nucleated RBC Nucleated RBC % (auto) Neutrophils % (Manual) Band Neutrophils % Lymphocytes % (Manual) Prolymphocyte % Reactive Lymphs % (Man) Monocytes % (Manual) Eosinophils % (Manual) Basophils % (Manual) Metamyelocytes % (Man) Myelocytes % (Man) Promyelocytes % (Man) Blast Cells % (Manual) Plasma Cell % (Manual) Other Cells % Nucleated RBC % Neutrophils # (Manual) Band Neutrophils # Total Absolute Neuts Lymphocytes # (Manual) Prolymphocyte # Reactive Lymphs # Total Abs Lymphocytes Monocytes # (Manual) Eosinophils # (Manual) Basophils # (Manual) Metamyelocytes # (Man) Myelocytes # (Manual) Promyelocytes # (Man) Blast Cells # (Man) Plasma Cell # (Manual) Other Cells # Nucleated RBCs # (Man) Hypersegmented Neuts Hyposegmented Neuts Hypogranular Neuts Large Granular Lymphs # Lrg Granular Lymphs Hairy Cells Smudge Cells Toxic Granulation Toxic Vacuolation Dohle Bodies Nancy Rods Platelet Estimate Hypogranular Platelets Clumped Platelets Giant Platelets Platelet Satelliting RBC Morphology Polychromasia Hypochromasia Poikilocytosis Basophilic Stippling Anisocytosis Microcytosis Macrocytosis Spherocytes Pappenheimer Bodies Sickle Cells Target Cells Tear Drop Cells Ovalocytes Stomatocytes [place] Bodies Echinocytes Acanthocytes (Spur) Rouleaux RBC Agglutinates Schistocytes RBC Morph Comment Sezary Cell Sodium Potassium Chloride Carbon Dioxide Anion Gap BUN Creatinine Est Cr Clr Drug Dosing Est GFR ( Amer) Est GFR (Non-Af Amer) BUN/Creatinine Ratio Glucose POC Glucose 155 H 162 H Estimat Average Glucose 171 Hemoglobin A1c 7.6 H Calcium Magnesium Total Bilirubin AST ALT Alkaline Phosphatase Troponin I Total Protein Albumin Globulin Albumin/Globulin Ratio Urine Color Urine Appearance Urine pH Ur Specific [place] Urine Protein Urine Glucose (UA) Urine Ketones Urine Blood Urine Nitrite Urine Bilirubin Urine Urobilinogen Ur Leukocyte Esterase Urine WBC (Auto) Urine RBC (Auto) U Hyaline Cast (Auto) U Epithel Cells (Auto) Urine Bacteria (Auto) COVID-19 Eval Order SARS-CoV-2 (PCR) Influenza Type A (PCR) Influenza Type B (PCR) RSV (RT-PCR)
[2021-02-04] MEDS ORDERED: GADOBUTROL 65ML VIAL IV ONE (13:19)
--- NOTE | 2021-02-04 13:35 | Magnetic Resonance Report ---
Brain MRI WITH AND WITHOUT CONTRAST HISTORY: severe headaches TECHNIQUE: Multiplanar multisequence MRI of the brain was performed both before and after the intrave nous administration of contrast. COMPARISON STUDY: Head CT 02/03/2021. FINDINGS: Mild motion artifact. There are no areas of restricted diffusion to suggest acute infarctio n. The midline structures are intact. The paranasal sinuses are clear. The mastoid air cells are dae r. The ventricles and sulci are within normal limits for age. There is no mass, hematoma, midline griselda ft. The major vascular flow-voids at the skull base are well maintained. Minimal periventricular whit e matter T2 hyperintensity likely represents microvascular ischemic change. This is likely within the range normal limits for age. Postcontrast sequences show no areas of abnormal enhancement. IMPRESSION: No acute intracranial abnormality. ACT 112: Negative or not required by law. Electronically signed by: Benito Caruso M.D. 02/04/2021 1:34 PM
[2021-02-04] MEDS: KETOROLAC 30 MG/ML VIAL IV PRN (16:19)
--- NOTE | 2021-02-04 17:31 | Ultrasound Report ---
US duplex renal artery CLINICAL HISTORY: hypertensive urgency, premature atherosclerosis COMPARISON STUDY: None. FINDINGS: The right kidney measures 12.3 cm and the left kidney measures 11.7 cm. No hydronephrosis. The peak systolic velocity within the mid right renal artery is 76 cm/s and within the proximal left renal artery is 97 cm/s. The bilateral renal veins are patent. IMPRESSION: No evidence for renal artery stenosis. ACT 112: Negative or not required by law. Electronically signed by: Benito Caruso M.D. 02/04/2021 5:30 PM
[2021-02-04] MEDS: PRAVASTATIN SOD 40 MG TAB PO SCH (21:19)
[2021-02-04] MEDS: amLODIPine BESYLATE 5 MG TAB PO SCH (21:20)
[2021-02-04] MEDS: METOPROLOL TARTRATE 100 MG TAB PO SCH (21:20)
[2021-02-04] MEDS: HYDROmorphone INJ 0.5 MG/0.5 ML SYR IV PRN (23:03)
[2021-02-05 07:00] LABS: Hematocrit (blood only) 36.1 % (37-47); Hemoglobin 12.3 g/dL (12.0-16.0); Mean Corpuscular Hgb Conc 34.1 g/dL (32-36); Mean Platelet Volume 9.3 fL (7.4-10.4); Platelet Count 346 K/uL (130-400); RDW Coefficient of Variation 13.5 % (11.5-14.5); White Blood Count 7.32 K/uL (4.8-10.8)
[2021-02-05 07:33] LABS: BUN Creatinine Ratio 21.2 (10-20); Calcium 9.2 mg/dl (8.5-10.1); Creatinine Clr Calc Pharmacy 86.3 ml/min; Est GFR (African American) 82.5; Est GFR (Non-African American) 71.2
[2021-02-05] MEDS: METOPROLOL TARTRATE 100 MG TAB PO SCH ×2 (08:14→20:42)
[2021-02-05] MEDS: DULoxetine HCL 60 MG CAP PO SCH (08:14)
[2021-02-05] MEDS: ASPIRIN 81 MG ECTAB PO SCH (08:14)
[2021-02-05] MEDS: CHOLECALCIFEROL 1,000 UNITS 25 MCG TAB PO SCH (08:14)
[2021-02-05] MEDS: amLODIPine BESYLATE 5 MG TAB PO SCH ×2 (08:14→20:42)
[2021-02-05] MEDS: CYANOCOBALAMIN 500 MCG TABLET (VITAMIN B-12) PO SCH (08:15)
[2021-02-05] MEDS: CLOPIDOGREL BISULFATE 75 MG TAB PO SCH (08:15)
[2021-02-05] MEDS: PANTOprazole 40 MG TAB PO SCH (08:15)
[2021-02-05] MEDS: INSULIN GLARGINE SOLOSTAR 100 UNITS/ML 3 ML PEN SC SCH (08:15)
[2021-02-05] MEDS: INSULIN ASPART 100 UNITS/ML 3 ML PEN SC SCH ×4 (08:15→20:36)
[2021-02-05] MEDS: lisinopril 40 MG TAB PO SCH (08:15)
[2021-02-05] MEDS: PREGABALIN 75 MG CAP PO SCH ×2 (08:20→20:41)
[2021-02-05] MEDS: KETOROLAC 30 MG/ML VIAL IV PRN ×2 (08:20→15:53)
[2021-02-05] MEDS ORDERED: amLODIPine BESYLATE 5 MG TAB PO SCH (09:00)
--- NOTE | 2021-02-05 09:43 | Progress Notes ---
DATE: 02/05/2021 NEUROLOGY PROGRESS NOTE A 50-year-old female. CHIEF COMPLAINT: Headache, accelerated blood pressures. SUBJECTIVE: The patient was seen and examined this morning at bedside. The patient had no acute events overnight. Blood pressures improved. The patient was seen by Cardiology yesterday. The patient also completed her MRI of the brain. OBJECTIVE: VITAL SIGNS: Blood pressure 166/96, pulse is 63, respiratory rate is 20, temperature is 36.4 degrees Celsius, oxygen saturations 91% on room air. PHYSICAL EXAMINATION: GENERAL: The patient appears normally developed and appears her stated age. She is in no acute distress. HEENT: Head is normocephalic and atraumatic. Normal eyelids, normal conjunctivae. NECK: Supple. LUNGS: Normal respiratory effort. CARDIAC: Pulses are normal. ABDOMEN: Nontender, nondistended. SKIN: No skin rash. PSYCHIATRIC: Normal mood, normal affect. NEUROLOGIC: She is awake, alert, oriented to person, place and time. Her speech is clear. Comprehension is intact. Visual patel are full to confrontation. Pupils are symmetric. Extraocular muscles are intact. Facial sensation is intact. Palate is symmetric. Shoulder shrug is normal. Tongue is midline. Gait is physiologic. She has no tremor or myoclonic jerks. Sensation is intact to light touch. Muscle tone is normal. Muscle exam is 5/5 throughout. Reflexes are 2+ at the knees. DIAGNOSTIC TESTING AND LABORATORY VALUES: MRI of the brain without contrast showed no acute intracranial abnormality. There was mild motion artifact. No areas of restricted diffusion to suggest acute infarct. Midline structures are intact. Minimal periventricular white matter T2 hyperintensity likely represents microvascular ischemic changes. Renal artery duplex showed no evidence of renal artery stenosis. WBC 7.32, hemoglobin was 12.3. Chemistry panel this morning are pending. Blood glucose is 158. Hemoglobin A1c was 7.6. Troponin is negative. ASSESSMENT AND PLAN: A 50-year-old woman admitted with hypertensive urgency and complaint of chronic daily headache since September. The patient has several comorbidities including type 2 diabetes, hypertension, and coronary artery disease, on aspirin and Plavix. MRI of the brain without contrast was reviewed this morning and I am happy to report that there is no evidence of PRES or posterior reversible leukoencephalopathy. I believe overall headache phenotype is likely consistent with a chronic migraine. Would strongly encourage avoiding the use of narcotic agents such as Dilaudid. Appreciate Cardiology input for management of her blood pressures. Blood pressures have since improved during admission. In regards to long-term management of her headaches, the patient will require Neurology followup as an outpatient. She is currently on high-dose Lyrica at home. Recommend starting a low-dose Topamax 25 mg twice daily for now. This can be adjusted as an outpatient. If headaches persist despite use of oral agents, we will consider a monoclonal antibody or consider Botox therapy as an outpatient. The patient is okay to be discharged from a neurology standpoint. Please contact me with any additional questions or concerns.
[2021-02-05] MEDS ORDERED: cloNIDine HCL 0.1 MG TAB PO ONE (10:48)
[2021-02-05] MEDS: cloNIDine HCL 0.1 MG TAB PO SCH ×2 (11:43→20:42)
--- NOTE | 2021-02-05 14:03 | Cardiology Progress Note ---
Date of Service February 05, 2021 Assessment & Plan (1) Hypertensive emergency without congestive heart failure: Patient is a 50-year-old female with history as outlined in HPI but notable for longstanding hypertension labile, premature atherosclerotic coronary disease with low HDL dyslipidemia who presents with several months history of headache and hypertension. Adjustments in medical therapies did not control symptoms and patient presented last night with severe headache and marked hype rtension. Head CT last night and MRI today without acute phenomena. Blood pressures are trending only slightly lower with medical therapies. Plan: Clonidine to be added to regimen today. Consider 24-hour urine collection for catecholamines as part of complete evaluation (2) Chronic coronary artery disease: Stable without cardiac symptoms troponin not elevated EKG will be ordered (3) Dyslipidemia with low high density lipoprotein (HDL) cholesterol with hypertriglyceridemia due to type 2 diabetes mellitus: Patient with past history of poor statin tolerance currently on pravastatin. Notes previously on fenofibrate in association with pravastatin but switch to omega-3 fish oils We will consider adding ezetimibe suspect patient will warrant referral for management possible PCSK9 inhibitor post discharge Admission and Anticipated Discharge Date Admission Date: February 04, 2021 Subjective Patient was seen and examined, chart, medications, telemetry reviewed. Still with persistent hypertension low-grade headache. No focal neurologic complaints. No nausea or vomiting. No fevers chills or unexplained infections. No arrhythmias on telemetry. Physical Exam Constitutional: + obese Eyes: PERRL, conjunctivae normal, anicteric sclerae ENMT: external ear and nose normal, oropharynx normal Neck: trachea midline, no thyromegaly Respiratory: normal respiratory effort, lungs clear to auscultation Cardiovascular: Rate/Rhythm: regular rate and regular rhythm Heart Sounds: normal S1 and normal S2; no gallop and no murmur Palpation: normal PMI Vessels: normal carotid upstroke and radial pulses present; no JVD and no ca rotid bruit Extremities: no edema Gastrointestinal (Abdomen): normal bowel sounds, soft, nontender, no hepatosplenomegaly Percussion/Palpation: no pulsatile mass Musculoskeletal: no cyanosis or clubbing, extremities motor strength 5/5 Skin: no rashes, warm and dry Neurologic: PERRL, EOMI, accommodation nl, no face palsy, no dysarthria Psychiatric: A+Ox3, euthymic affect Results & Data ([facility]) Vital Signs (Past 12 Hours) Vital Signs Temp Pulse Resp BP BP Pulse Ox 02/05/21 11:59 36.4 C L 71 18 161/100 H 97 02/05/21 07:26 37.1 C 71 17 177/103 H 92 02/05/21 03:01 36.4 C L 63 20 166/96 H 91 Laboratory Results Laboratory Results - last 24 hr 02/04/21 02/04/21 02/05/21 16:18 20:24 06:14 WBC 7.32 RBC 4.10 L Hgb 12.3 Hct 36.1 L MCV 88.0 MCH 30.0 MCHC 34.1 RDW Std Deviation 44.0 RDW Coeff of Nicolas 13.5 Plt Count 346 MPV 9.3 Sodium Potassium Chloride Carbon Dioxide Anion Gap BUN Creatinine Est Cr Clr Drug Dosing Est GFR ( Amer) Est GFR (Non-Af Amer) BUN/Creatinine Ratio Glucose POC Glucose 182 H 158 H Calcium 02/05/21 02/05/21 02/05/21 06:14 07:29 11:58 WBC RBC Hgb Hct MCV MCH MCHC RDW Std Deviation RDW Coeff of Nicolas Plt Count MPV Sodium 139 Potassium 4.0 Chloride 109 H Carbon Dioxide 24 Anion Gap 6.0 BUN 20 H Creatinine 0.93 Est Cr Clr Drug Dosing 86.3 Est GFR ( Amer) 82.5 Est GFR (Non-Af Amer) 71.2 BUN/Creatinine Ratio 21.2 H Glucose 142 H POC Glucose 135 H 147 H Calcium 9.2
--- NOTE | 2021-02-05 14:22 | Electrocardiogram Report ---
Test Reason : Blood Pressure : / mmHG Vent. Rate : 077 BPM Atrial Rate : 077 BPM P-R Int : 194 ms QRS Dur : 080 ms QT Int : 396 ms P-R-T Axes : 015 -06 059 degrees QTc Int : 448 ms Normal sinus rhythm possible Inferior infarct , age undetermined Abnormal ECG No previous ECGs available Confirmed by Osvaldo Carbajal ([id number]) on 02/05/2021 2:21:57 PM Referred By: REFERRED SELF Confirmed By:Bereket Carbajal
--- NOTE | 2021-02-05 15:21 | Electrocardiogram Report ---
Test Reason : Blood Pressure : / mmHG Vent. Rate : 065 BPM Atrial Rate : 065 BPM P-R Int : 218 ms QRS Dur : 076 ms QT Int : 406 ms P-R-T Axes : 021 -22 068 degrees QTc Int : 422 ms Sinus rhythm with 1st degree A-V block Otherwise normal ECG No previous ECGs available Confirmed by Osvaldo Carbajal ([id number]) on 02/05/2021 3:20:29 PM Referred By: REFERRED SELF Confirmed By:Bereket Carbajal
[2021-02-05] MEDS: HYDROmorphone INJ 0.5 MG/0.5 ML SYR IV PRN ×2 (17:03→20:51)
--- NOTE | 2021-02-05 18:41 | Hospitalist Progress Note ---
Date of Service February 05, 2021 Assessment & Plan (1) Hypertensive emergency without congestive heart failure: Present on admission with headache and elevated BP 226/[address] and MRI without acute phenomena Renal aretery duplex showed no evidence for renal artery stenosis. cardiology on board Was started on Amlodipine 5mg BID last night Clonidine 0.1 mg po BID started today Lisinopril 40mg daily and Metoprolol 100mg BID Continue monitor BP Headache Possible related to uncontrolled HTN MRI head negative Neuro on board Recommended to start on Topamax twice daily for now and can be titrate as an outpatient. If headaches persist despite use of oral agents, might consider monoclonal antibody or consider Botox therapy as an outpatient. Follow up with neuro outpatient CAD Denies any chest pain Continue aspirin, plavix, metoprolol and pravatatin Stable Dyslipidemia Poor statin tolerance currently on pravastatin. cardiology recommended to add ezetimibe suspect patient will warrant referral for management possible PCSK9 inhibitor post discharge Diabetes type 2 Most recent Hba1c 7.6 Metformin on hold Continue Lantus and novolog sliding scale Continue monitor BS DVT px SCD/Ambulate Consider to add heparin subq BID CODE STATUS FULL CODE Admission and Anticipated Discharge Date Admission Date: February 04, 2021 Subjective Pt was seen and examined for follow up of HTN and headache Lying in bed with no distress Pt said that she continues to have headache Denies any chest pain, palpitation, dizziness and SOB Review of Systems Review of Systems: All systems reviewed & are unremarkable except as noted in Subjective Physical Exam Physical Exam: General- No acute distress Head- atraumatic Eyes- PERRL, EOMI, ENT- oropharynx clear Neck- supple, no JVD Lungs- clear to auscultation Heart- regular rhythm; no murmur Abdomen- normal bowel sounds, soft, nontender Extremities- no calf tenderness Neuro- alert, oriented x 3; PERRL, EOMI; no facial palsy; no dysarthria Skin- warm & dry Results & Data Results & Data ([facility]) Vital Signs (Past 12 Hours) Vital Signs Temp Pulse Resp BP BP Pulse Ox 02/05/21 15:27 36.4 C L 64 17 134/80 92 02/05/21 11:59 36.4 C L 71 18 161/100 H 97 02/05/21 07:26 37.1 C 71 17 177/103 H 92
[2021-02-05] MEDS: EZETIMIBE 10 MG TABLET PO SCH (20:09)
[2021-02-05] MEDS: PRAVASTATIN SOD 40 MG TAB PO SCH (20:42)
[2021-02-05] MEDS: TOPIRAMATE 25 MG TAB PO SCH (20:42)
[2021-02-06] MEDS: INSULIN ASPART 100 UNITS/ML 3 ML PEN SC SCH ×2 (08:16→11:57)
[2021-02-06] MEDS: INSULIN GLARGINE SOLOSTAR 100 UNITS/ML 3 ML PEN SC SCH (08:17)
[2021-02-06] MEDS: lisinopril 40 MG TAB PO SCH (08:26)
[2021-02-06] MEDS: KETOROLAC 30 MG/ML VIAL IV PRN (08:26)
[2021-02-06] MEDS: PREGABALIN 75 MG CAP PO SCH (08:26)
[2021-02-06] MEDS: CLOPIDOGREL BISULFATE 75 MG TAB PO SCH (08:27)
[2021-02-06] MEDS: DULoxetine HCL 60 MG CAP PO SCH (08:27)
[2021-02-06] MEDS: CYANOCOBALAMIN 500 MCG TABLET (VITAMIN B-12) PO SCH (08:27)
[2021-02-06] MEDS: PANTOprazole 40 MG TAB PO SCH (08:27)
[2021-02-06] MEDS: CHOLECALCIFEROL 1,000 UNITS 25 MCG TAB PO SCH (08:27)
[2021-02-06] MEDS: ASPIRIN 81 MG ECTAB PO SCH (08:27)
[2021-02-06] MEDS: amLODIPine BESYLATE 5 MG TAB PO SCH (08:28)
[2021-02-06] MEDS: EZETIMIBE 10 MG TABLET PO SCH (08:28)
[2021-02-06] MEDS: TOPIRAMATE 25 MG TAB PO SCH (08:28)
[2021-02-06] MEDS: cloNIDine HCL 0.1 MG TAB PO SCH (08:28)
[2021-02-06] MEDS: METOPROLOL TARTRATE 100 MG TAB PO SCH (08:28)
--- NOTE | 2021-02-06 12:57 | Hospitalist Progress Note ---
Date of Service February 06, 2021 Assessment & Plan (1) Hypertensive emergency without congestive heart failure: Present on admission with headache and elevated BP 226/[address] and MRI without acute phenomena Renal aretery duplex showed no evidence for renal artery stenosis. cardiology on board Continue Amlodipine 5mg BID, Clonidine 0.1 mg po BID, Lisinopril 40mg daily and Metoprolol 100mg BID Continue monitor BP Ok from cardiology standpoint to disharge home Headache Possible related to uncontrolled HTN MRI head negative Neuro on board Recommended to start on Topamax twice daily for now and can be titrate as an outpatient. If headaches persist despite use of oral agents, might consider monoclonal antibody or consider Botox therapy as an outpatient. Follow up with neuro outpatient in 3-4 weeks CAD Denies any chest pain Continue aspirin, plavix, metoprolol and Pravastatin and Ezitimibe Stable Dyslipidemia Poor statin tolerance currently on pravastatin. cardiology recommended to add ezetimibe suspect patient will warrant referral for management possible PCSK9 inhibitor post discharge Continue current med Diabetes type 2 Most recent Hba1c 7.6 Metformin on hold Continue Lantus and novolog sliding scale Continue monitor BS DVT px SCD/Ambulate CODE STATUS FULL CODE Disposition Discharge home today Admission and Anticipated Discharge Date Admission Date: February 04, 2021 Subjective Pt was seen and examined for follow up of HTN and headache Lying in bed with no distress Pt said that she that her headache improves She is very anxious to go home today Denies any chest pain, palpitation, dizziness and SOB Review of Systems Review of Systems: All systems reviewed & are unremarkable except as noted in Subjective Physical Exam Physical Exam: General- No acute distress Head- atraumatic Eyes- PERRL, EOMI, ENT- oropharynx clear Neck- supple, no JVD Lungs- clear to auscultation Heart- regular rhythm; no murmur Abdomen- normal bowel sounds, soft, nontender Extremities- no calf tenderness Neuro- alert, oriented x 3; PERRL, EOMI; no facial palsy; no dysarthria Skin- warm & dry Results & Data Results & Data ([facility]) Vital Signs (Past 12 Hours) Vital Signs Temp Pulse Pulse Resp BP Pulse Ox 02/06/21 08:07 36.8 C 60 18 151/61 H 98 02/06/21 08:00 66 02/06/21 04:19 36.5 C 65 18 142/93 H 92
--- NOTE | 2021-02-06 15:23 | Cardiology Progress Note ---
Date of Service February 06, 2021 Assessment & Plan (1) Hypertensive emergency without congestive heart failure: Patient is a 50-year-old female with history as outlined in HPI but notable for longstanding hypertension labile, premature atherosclerotic coronary disease with low HDL dyslipidemia who presents with several months history of headache and hypertension. Adjustments in medical therapies did not control symptoms and patient presented with severe headache and marked hypertension. Plan: Continue current medical regimen as ordered discussed need for multiple drug therapy to manage hypertension Will need cardiac follow-up [facility] (2) Chronic coronary artery disease: Stable without cardiac symptoms troponin not elevated EKG will be ordered (3) Dyslipidemia with low high density lipoprotein (HDL) cholesterol with hypertriglyceridemia due to type 2 diabetes mellitus: Patient with past history of poor statin tolerance currently on pravastatin. Notes previously on fenofibrate in association with pravastatin but switch to omega-3 fish oils Ezetimibe added. May need to consider PCSK9 as part of long-term management Admission and Anticipated Discharge Date Admission Date: February 04, 2021 Subjective Clinically looks improved, headache and blood pressure reduced. No fevers or chills. Notes some mild visual changes with associated clonidine but no other acute complaints. No signs of edema. Physical Exam Constitutional: + obese Eyes: PERRL, conjunctivae normal, anicteric sclerae ENMT: external ear and nose normal, oropharynx normal Neck: trachea midline, no thyromegaly Respiratory: normal respiratory effort, lungs clear to auscultation Cardiovascular: Rate/Rhythm: regular rate and regular rhythm Heart Sounds: normal S1 and normal S2; no gallop and no murmur Palpation: normal PMI Vessels: normal carotid upstroke and radial pulses present; no JVD and no carot id bruit Extremities: no edema Gastrointestinal (Abdomen): normal bowel sounds, soft, nontender, no hepatosplenomegaly Percussion/Palpation: no pulsatile mass Musculoskeletal: no cyanosis or clubbing, extremities motor strength 5/5 Skin: no rashes, warm and dry Neurologic: PERRL, EOMI, accommodation nl, no face palsy, no dysarthria Psychiatric: A+Ox3, euthymic affect Results & Data ([facility]) Vital Signs (Past 12 Hours) Vital Signs Temp Pulse Pulse Pulse Resp BP BP 02/06/21 13:15 36.8 C 83 60 18 134/80 151/61 H 02/06/21 08:07 36.8 C 60 18 151/61 H 02/06/21 08:00 66 02/06/21 04:19 36.5 C 65 18 142/93 H Pulse Ox 02/06/21 13:15 98 02/06/21 08:07 98 02/06/21 08:00 02/06/21 04:19 92
--- NOTE | 2021-02-10 08:44 | Discharge Summary ---
Date of Service February 06, 2021 Admission HPI Per Admitting Provider CHIEF COMPLAINT: Severe headache and elevated blood pressure. HISTORY OF PRESENT ILLNESS: This is a 50-year-old female with past medical history significant for type 2 diabetes, diabetic retinopathy, hyperlipidemia, CAD, hypertension, GERD, vitamin D deficiency, vitamin B12 deficiency, restless legs syndrome, recurrent epigastric abdominal pain, adjustment depression, history of tobacco abuse, who presents with severe headaches. The patient states since September, she is having on and off headaches. Since the last several days, the pain has become constant and severe. She is also following with PCP,headaches thought to be due to elevated blood pressure and her Lopressor dose was increased to 75 b.i.d., but headaches is not getting better, and came to the ER. In the ER, blood pressure was high when she came in, blood pressure was 226/124 and the patient was given labetalol, Ativan, Benadryl, Toradol, promethazine. Still her blood pressure is running high and still complains of headache and somewhat drowsy from the Ativan. Denies any other complaints. One time she had vision problem , but recently she saw ophthalmology and has new eye glasses. Denies any earache, no runny nose, no sore throat, no loss of sense of smell or taste. No cough, no difficulty swallowing. Appetite is okay. No chest pain, no shortness of breath. Nausea, but no vomiting. No abdominal pain. Normal bowel and bladder movements. Ambulating okay. Lives alone. No swelling in the legs. Admission Exam Per Admitting Provider GENERAL: The patient is obese, not in acute distress. VITAL SIGNS: Temperature 36.4, pulse 75, respiratory rate 22, blood pressure currently 189/110, oxygen 93% on room air. HEENT: Pupils equal, round, reactive to light. Oral mucosa dry. NECK: No JVD, no neck masses. CARDIOVASCULAR: S1, S2 heard, regular rate and rhythm, no murmur, no gallop. RESPIRATORY SYSTEM: Normal AP diameter. No accessory muscle use. No wheezing, no crackles. ABDOMEN: Soft, bowel sounds present, nontender. No distention. CENTRAL NERVOUS SYSTEM: Cranial nerves II-XII grossly intact. Nonfocal. EXTREMITIES: No edema, no erythema. Principal Diagnosis Hypertensive emergency without congestive heart failure: Headache CAD Dyslipidemia Diabetes type 2 Discharge Exam General- No acute distress Head- atraumatic Eyes- PERRL, EOMI, ENT- oropharynx clear Neck- supple, no JVD Lungs- clear to auscultation Heart- regular rhythm; no murmur Abdomen- normal bowel sounds, soft, nontender Extremities- no calf tenderness Neuro- alert, oriented x 3; PERRL, EOMI; no facial palsy; no dysarthria Skin- warm & dry Discharge Data Allergies Allergy/AdvReac Type Severity Reaction Status Date / Time dicyclomine Allergy Unknown GI UPSET Unverified 02/04/21 00:14 glipizide Allergy Unknown GI UPSET Unverified 02/04/21 00:14 Penicillins Allergy Unknown RASH Unverified 02/04/21 00:14 prednisone Allergy Unknown GI UPSET Unverified 02/04/21 00:14 Jraqhmw-Wwi-Cwr Reductase Allergy Unknown JOINTS ACHE Unverified 02/04/21 00:14 Inhibitor Sulfa (Sulfonamide Allergy Unknown UNKNOWN Unverified 02/04/21 00:14 Antibiotics) trazodone Allergy Unknown EXCESSIVE Unverified 02/04/21 00:14 SLEEPING Consultations 02/04/21 02:57 ED Decision to Admit Stat 02/04/21 08:00 Consult Cardiology Routine Consult Neurology Routine Ordered Studies 02/03/21 23:41 CT head/brain wo con Urgent 02/04/21 06:01 MR brain wo/w con Urgent 02/04/21 13:43 US duplex renal artery Routine US duplex renal artery CLINICAL HISTORY: hypertensive urgency, premature atherosclerosis COMPARISON STUDY: None. FINDINGS: The right kidney measures 12.3 cm and the left kidney measures 11.7 cm. No hydronephrosis. The peak systolic velocity within the mid right renal artery is 76 cm/s and within the proximal left renal artery is 97 cm/s. The bilateral renal veins are patent. IMPRESSION: No evidence for renal artery stenosis. ACT 112: Negative or not required by law. Electronically signed by: Benito Caruso M.D. 02/04/2021 5:30 PM Dictated: 02/04/211728Transcribed: 02/04/211728 Brain MRI WITH AND WITHOUT CONTRAST HISTORY: severe headaches TECHNIQUE: Multiplanar multisequence MRI of the brain was performed both before and after the intravenous administration of contrast. COMPARISON STUDY: Head CT 02/03/2021. FINDINGS: Mild motion artifact. There are no areas of restricted diffusion to suggest acute infarction. The midline structures are intact. The paranasal sinuses are clear. The mastoid air cells are clear. The ventricles and sulci are within normal limits for age. There is no mass, hematoma, midline shift. The major vascular flow-voids at the skull base are well maintained. Minimal periventricular white matter T2 hyperintensity likely represents microvascular ischemic change. This is likely within the range normal limits for age. Postcontrast sequences show no areas of abnormal enhancement. IMPRESSION: No acute intracranial abnormality. ACT 112: Negative or not required by law. Electronically signed by: Benito Caruso M.D. 02/04/2021 1:34 PM Dictated: 02/04/21 1325Transcribed: 02/04/[address] SCAN OF THE BRAIN WITHOUT IV CONTRAST CLINICAL HISTORY: Headache. Hypertension. COMPARISON STUDY: No priors. TECHNIQUE: Unenhanced axial CT scan of the brain is performed from the vertex to the skull base. A dose lowering technique was utilized adhering to the principles of ALARA. CT DOSE: 614.27 mGy.cm FINDINGS: Brain parenchyma: The brain parenchyma is normal in appearance. There is no hemorrhage, mass effect, or evidence of acute territorial ischemia by CT criteria. Nicole-white matter differentiation is preserved. No extra-axial fluid collection is seen. Ventricles, sulci, cisterns: Normal in configuration. Intracranial vasculature: There is atherosclerotic calcification of the vertebral arteries. Calvarium: Unremarkable. Sinuses and mastoids: The visualized paranasal sinuses are clear. The mastoid air cells are well pneumatized. Orbits: The bony orbits are grossly intact. IMPRESSION: There is no hemorrhage, mass effect, or evidence of acute territorial ischemia by CT criteria. ACT 112: Negative or not required by law. Electronically signed by: Mika Hayes M.D. 02/04/2021 7:25 AM Dictated: 02/04/21723Transcribed: 02/04/21723 Hospital Course (1) Hypertensive emergency without congestive heart failure: Present on admission with headache and elevated BP 226/[address] and MRI without acute phenomena Renal aretery duplex showed no evidence for renal artery stenosis. cardiology on board Continue Amlodipine 5mg BID, Clonidine 0.1 mg po BID, Lisinopril 40mg daily and Metoprolol 100mg BID Continue monitor BP Ok from cardiology standpoint to disharge home Headache Possible related to uncontrolled HTN MRI head negative Neuro on board Recommended to start on Topamax twice daily for now and can be titrate as an outpatient. If headaches persist despite use of oral agents, might consider monoclonal antibody or consider Botox therapy as an outpatient. Follow up with neuro outpatient in 3-4 weeks CAD Denies any chest pain Continue aspirin, plavix, metoprolol and Pravastatin and Ezitimibe Stable Dyslipidemia Poor statin tolerance currently on pravastatin. cardiology recommended to add ezetimibe suspect patient will warrant referral for management possible PCSK9 inhibitor post discharge Continue current med Diabetes type 2 Most recent Hba1c 7.6 Metformin on hold Continue Lantus and novolog sliding scale Continue monitor BS DVT px SCD/Ambulate CODE STATUS FULL CODE Disposition Discharge home today Total Time Total Time Spent Total Time Spent (In Minutes): 35 minutes Total Time Includes: Examination of the Patient, Discharge Planning, Medication Reconciliation, Communication With Other Providers and Other Discharge Plan Discharge Items Patient Disposition: Home - Self-Care Reason For Visit: SEVERE HEADACHE Discharge Diagnosis: Hypertensive emergency without congestive heart failure: Headache CAD Dyslipidemia Diabetes type 2 Activity: Resume your previous activity Non-emergency contact: Primary Care Provider and Neurologist Call non-emergency contact if: you have any medication questions Follow-up/Referrals: Karolyn Christopher PA-C [Physician [employer]] - (Date & Time 04/07/2021 11:20 AM Provider Karolyn Christopher PA-C Department Neurology [facility] ) Andree Perez PA-C [Primary Care Provider] - (Date & Time 02/07/2021 12:00 PM Provider Andree Perez PA-C Department [facility] ) Diet: Carb Consistent or DM2 Addtl Attending Provider Instructions: Follow up with your primary care provider Ana MICHAEL on 02/07/2021 at 12:00 PM at the [facility] Follow up with neurology if headache does not improve (Neurology will call you for the appointment) Your provider or neurology will titrate the topomax for the headache if no relief Continue monitor your blood pressure Continue follow a healthy diabetes diet and limited concentrated sweet intake Check LFT in 1 -2 weeks to monitor your liver enzymes since starting on Ezitimibe for your cholesterol Pending Studies at Discharge: No Stand-Alone Forms: My [facility], Smoking Cessation Medications and DC Order Prescriptions: New metoprolol tartrate 100 mg Tablet 100 mg PO BID 30 Days Qty: 60 RF: 0 amlodipine [Norvasc] 5 mg Tablet 5 mg PO BID 30 Days Qty: 60 RF: 0 clonidine HCl 0.1 mg Tablet 0.1 mg PO BID 30 Days Qty: 60 RF: 0 ezetimibe 10 mg Tablet 10 mg PO QAM 30 Days Qty: 30 RF: 0 topiramate 25 mg Tablet 25 mg PO BID 30 Days Qty: 60 RF: 0 Continued pravastatin 40 mg tablet 40 mg PO QPM RF: 0 lisinopril 20 mg tablet 40 mg PO DAILY RF: 0 metformin 1,000 mg tablet 1,000 mg PO BID RF: 0 duloxetine 60 mg capsule,delayed release(DR/EC) 60 mg PO DAILY RF: 0 pregabalin 225 mg capsule 225 mg PO BID RF: 0 omega 3-[id number]-wcz-fish oil [Fish Oil] 300-1,000 mg capsule 1 cap PO BID RF: 0 prochlorperazine maleate 5 mg tablet 2.5 mg PO Q6 PRN (Reason: Nausea) RF: 0 ondansetron HCl 4 mg tablet 4 mg PO Q6 PRN (Reason: Nausea) RF: 0 pantoprazole 40 mg tablet,delayed release (DR/EC) 40 mg PO DAILY RF: 0 cholecalciferol (vitamin D3) 125 mcg (5,000 unit) capsule 125 mcg PO DAILY RF: 0 Ozempic 0.25 mg or 0.5 mg(2 mg/1.5 mL) pen injector 0.5 mg SUBCUT WK RF: 0 aspirin [Aspirin Low Dose] 81 mg Tablet,Delayed Release (Dr/Ec) 81 mg PO DAILY RF: 0 clopidogrel 75 mg tablet 75 mg PO DAILY RF: 0 cyanocobalamin (vitamin B-12) [Vitamin B-12] 1,000 mcg Tablet 1,000 mcg PO DAILY RF: 0 Discontinued metoprolol tartrate 25 mg tablet 75 mg PO BID RF: 0 Discharge Orders: Discharge Order (Routine); Ordered 02/06/21 Ordered By: Mehreen Hernandez/Other Patient Handouts: High Blood Sugar (Hyperglycemia), Hypoglycemia (Low Blood Sugar), Managing Type 2 Diabetes, Managing Diabetes: The A1C Test Admission Data Admit Date/Time: 02/04/21 04:02 Attending Provider: Mehreen Salvador Admit Provider: Tom Arenas Primary Care Provider: Andree Perez Other Providers: Tom Arenas ; Kyle Conte ; Mario Cote ; Brian Voss ; Luis James ; Ildefonso Ramírez ; Kris Williamson ; Juliette Colby ; Karolyn Landis ; Zelda Wellington ; Rob Pino ; Karolyn Christopher ; Bryon Dahl ; Karolyn Suarez ; Gautam Melendez ; Tami Fournier I. Other Interventions: Discharge Summary Assessment (RN) Last Done: 02/06/21 13:15
== END 2021-02-06 14:16 | disposition home or self-care (01) | DRG 305 ==
LOC: ED 23:08 → SUATTDRO 02-04 04:02 → 2S 02-04 04:02